=== PATIENT | female | born 1960 | race Two or more races ===

== ENCOUNTER 2025-03-17 10:24 | Outpatient (REF) | payer OTHER, SELFPAY ==
--- OUTSIDE RECORDS SUMMARY | 2025-03-18 10:26 | XMS_ITS ---
Author Name [facility] Organization Unknown Encounters Encounter Type Encounter Reason Primary Diagnosis Location Date Ambulatory [facility] 11/02/2024 Care Team Organization Name Specialty Phone Email Start Date End Da te [facility] ARY BRACLAY Primary Care 07/01/2022 4
--- OUTSIDE RECORDS SUMMARY | 2025-03-18 10:26 | XMS_ITS | Clinical Summary ---
Author Organization [facility] Address [address] [place] [id number] Phone Care Team Providers Care Barrel Filler Name Role Phone Nelson Sanchez MD Primary Care Provider + Allergies No known active allergies Medications OZEMPIC 0.25 mg or 0.5 mg (2 mg/3 mL) subcutaneous injection pen Inject 0.25 mg under the skin every 7 days. 4 Active atorvastatin (LIPITOR) 10 MG tablet Take 10 mg by mouth daily. Active therapeutic multivitamin tablet Take 1 tablet by mouth daily. Active famotidine (PEPCID) 20 MG tablet Take 20 mg by mouth 2 (two) times a day. Active nystatin cream Apply topically 2 (two) times a day. 30 g 2 Active Active Problems Problem Noted Date Diagnosed Date Abdominal pannus 03/28/2024 Intertrigo 03/28/2024 Family History Medical History Relation Comments Diabetes Mother Hypertension Mother Stroke Mother Relation Status Comments Father Mother Alive Social History Tobacco Use Types Packs/Day Years Used Date Smoking Tobacco: Never Tobacco Cessation:Counseling Given: Not Answered Alcohol Use Standard Drinks/Week Comments Not Currently 0 (1 standard drink = 0.6 oz pur e alcohol) Education Answer Date Recorded Are you interested in more education? Not on shmuel e 03/03/2024 Are you concerned about learning? Not on file 03/03/2024 No 03/03/2024 No 03/03/2024 Digital Access Answer Date Recorded No 03/03/2024 No 03/03/2024 Reliable internet access at home? Not on file 03/03/2024 Device with a working camera? Not on file Comments Unknown Sex and Gender Information Value Date Recorded Sex Assigned at Not on file Legal Sex Female 9:04 AM EDT Gender Identity Not on file Sexual Orientation Not on file Last Filed Vital Signs Vital Sign Reading Time Taken Comments Blood Pressure 110/56 05/24/2024 9:00 AM EDT Pulse 59 05/24/2024 9:00 AM EDT Temperature - - Respiratory Rate - - Oxygen Saturation - - Inhaled Oxygen Concentration - - Weight 65.1 kg (143 lb 9.6 oz) 05/24/2024 9:00 A M EDT Height 154.9 cm (5' 1 ) 05/24/2024 9:00 AM EDT Body Mass Index 27.13 05/24/2024 9:00 AM EDT Plan of Treatment Health Maintenance Due Date Last Done Comments DEPRESSION SCREENING 1972 HEPATITIS C SCREENING 1978 HIV ONE-TIME SCREENING (18-6 5 YEARS) 1978 SMOKING STATUS SCREENING (On ce After 26 Yrs) 1986 SCREENING FOR DIABETES 1995 MAMMOGRAM 2000 COLOGUARD 2005 COLONOSCOPY 2005 COLORECTAL CANCER SCREENING 2005 FIT TEST 2005 FOBT 2005 SIGMOIDOSCOPY 2005 VIRTUAL COLONOSCOPY 2005 PNEUMOCOCCAL VACCINES (50+ years) (1 of 1 - PCV) 2010 ZOSTER VACCINES (1 of 2) 2010 PAP SMEAR 11/26/2020 11/26/2017 COVID-19 VACCINE ( - 2023-2 5 season) 2024 LIPID PANEL 01/13/2029 01/14/2024 Adult Td,Tdap Booster 07/24/2030 07/24/2020 , 11/01/2009 RSV VACCINE (1 - 1-dose 75+ series) 2035 HEPATITIS A VACCINES Aged Out No long er eligible based on patient's age to complete this topic HIB VACCINES Aged Out No longer eligi ble based on patient's age to complete this topic MENINGOCOCCAL VACCINES (ACWY) Aged Out No longer eligible based on patient's age to complete this topic MENINGOCOCCAL VACCINES (B) Aged Out N o longer eligible based on patient's age to complete this topic Medical Devices Not on file Insurance MEDICARE REPLACEMENT MEDICARE REPLACEMENT MEDICARE REPLACEMENT MEDICARE REPLACEMENT MEDICARE REPLACEMENT MEDICARE REPLACEMENT Care Teams Barrel Filler Relationship Specialty Start Date End Date Nelson Sanchez MD [address] [place] [id number] PCP - General Internal Medicine 03/03/24 Additional Source Comments The information contained in this document represents components of the legal health record. It is not the complete legal health record.[facility]
--- OUTSIDE RECORDS SUMMARY | 2025-03-18 10:26 | XMS_ITS | Clinical Summary ---
Author Organization [facility] [address] [place] [address] Address [address] [place] [address] Phone Care Team Providers Care Forging Press Setter Up Name Role Phone Nelson Sanchez MD Primary Care Provider [phone] Allergies Active Allergy Reactions Criticality Noted Date Comments Blueberry Flavor Hives 07/05/2015 Fruit Shrimp Anaphylaxis High 05/09/2016 Medications betamethasone valerate (VALISONE) 0.1 % ointment Apply to affected area twice a day for 2 weeks. Avoid face and genital area. 4 Active naproxen (NAPROSYN) 500 mg tablet Take 1 Tablet by mouth 2 times daily as needed for Pain. 3 Active blood-glucose meter kit 1 Device by Does not apply route daily. 3 Active famotidine (PEPCID) 20 mg tablet Take 1 Tablet by mouth 2 times daily for 180 days. 3 Active acetaminophen (TYLENOL) 500 mg tablet Take 2 Tablets by mouth every 8 hours for 30 days. 2 Active wheat dextrin 3 gram/4 gram powder Take 4 g by mouth daily. 2 Active ketoconazole (NIZORAL) 2 % cream Apply 2 g topically daily for 14 days. 2 Active cholecalciferol (VITAMIN D-3) 1,250 mcg (50,000 unit) capsule Take 1 capsule by mouth once a week. 2 Active loratadine (CLARITIN) 10 mg tablet Take 1 tablet (10 mg total) by mouth 1 (one) time each day. 0 Active meclizine (ANTIVERT) 25 mg tablet TAKE 1 TABLET BY MOUTH 3 TIMES DAILY NEEDED FOR VERTIGO/DIZZINES S 90 tablet 1 4 Active Additional Information Patient not taking.Reported on 01/24/2025 Ozempic 0.25 mg or 0.5 mg (2 mg/3 mL) injection pen INJECT 0.5 MG UNDER THE SKIN EVERY 7 (SEVEN) DAYS. 3 mL 5 5 Active atorvastatin (LIPITOR) 10 mg tablet TAKE 1 TABLET BY MOUTH EVERY DAY 90 tablet 1 5 Active freestyle (FreeStyle Lancets) 28 gauge lancets Use to check BS daily 100 each 5 Active blood sugar diagnostic (FreeStyle Lite Strips) test strip Use to check bs daily 100 each 5 Active Active Problems Problem Noted Date Diagnosed Date Class 2 severe obesity due t o excess calories with serious comorbidity and body mass index (BMI) of 39.0 to 39.9 in adult ([facility] V24, [facility] V28) 06/09/2024 Other specified health status 06/09/2024 Overview (06/09/2024): Osteoarthrosis, unspecified whether generalized or localized, unspecified site Lumbar spondylosis 11/09/2023 Sacroiliitis ([facility] V24) 11/09/2023 Diabetic retinopathy ([facility] V24, [facility] V28) 05/13/2023 High cholesterol 10/11/2021 Secondary hypertension 04/11/2021 Pelvic pain 03/05/2021 Overview (06/09/2024): Last Assessment & Plan: Discussed potential causes of pelvic pain with the patient including infections, , ovarian cysts, endometriosis, interstitial cystitis, irritable bowel, and MSK etiologies. Pelvic US ordered Discussed relief measures. Postmenopausal bleeding 03/05/2021 Overview (06/09/2024): Last Assessment & Plan: I discussed the common causes of postmenopausal bleeding including trauma, atrophy, and endometrial polyps, as well as less common but more concerning causes including endometrial hyperplasia and endometrial carcinoma. Recommend pelvic ultrasound, which was ordered today. Discussed recommendation for endometrial sampling, as well. Patient declines EMB today. Will return for EMB at a later time. All questions answered. COVID-19 10/08/2020 Primary osteoarthritis of left knee 08/07/2020 Type 2 diabetes mellitus wit h cataract ([facility] V24, [facility] V28) 02/07/2019 Depression 10/27/2017 Pes planus of both feet 05/11/2017 Other specified health status 12/08/2016 Vitamin D deficiency 05/13/2012 Bilateral carpal tunnel syndrome 07/03/2010 Cervical neck pain with evidence of disc disease 04/08/2010 Herniated cervical disc 04/08/2010 Radiculopathy of arm 04/08/2010 Overview (06/09/2024): Right and Left Osteoarthritis 03/30/2007 Overview (06/09/2024): ankles and right knee pain IMO update Encounters Date Type Department Care Team Description 01/24/2025 1:15 PM EDT Office Visit Endocrinology [address] [phone] Angelica Braden PA Type 2 diabetes mellitus with cataract ([facility] V24, [facility] V28) (Primary Dx) 01/03/2025 3:30 PM EDT Office Visit Adult Medicine [address] [phone] Lavonne Yu PA Type 2 diabetes mellitus with cataract ([facility] V24, [facility] V28) (Primary Dx); High cholesterol; Varicose veins of both lower extremities, unspecified whether complicated; History of hypertension; Vertigo from Last 3 Months Immunizations Name Administration Dates Next Due H1N1 Inj Preservative Free 08/03/2009 Influenza Quadravalent, MDCK , 0.5ml, preservative free (Flucelvax) 6mo and older 06/03/2021,07/24/2020,06/16/2018 Influenza Quadrivalent, 0.5m l, preservative free (Fluarix; FluLaval; Fluzone) ages 6mo and older (Afluria) 3yo and older 06/06/2022 Influenza trivalent, 0.5mL, preservative free (Fluarix; FluLaval; Fluzone) ages 6mo and older (Afluria) 3 years and older 06/15/2015,06/07/2014,05/13/2010 Pneumococcal polysaccharide 23 valent (Pneumovax 23) 2yo and older 01/29/2017 Tdap Tetanus diptheria acell ular pertussis (Boostrix; Adacel) 7yo and older 07/24/2020,11/01/2009 Zoster recombinant (Shingrix ) 19yo and older 12/22/2021 Surgical History Surgery Date Site/Laterality Comments TUBAL LIGATION PROCEDURE: HISTORICAL TUBAL LIGATION OVARIAN CYST REMOVAL 08/24/2004 PROCEDURE: CA OVARIAN CYSTECTOMY UNI/BI; COMMENT: ? paraovarian cyst COLONOSCOPY 07/10/2010 PROCEDURE: HISTORICAL COLONOSCOPY; COMMENT: [facility]; [place]; negative but poor prep. COLONOSCOPY 03/14/2021 PROCEDURE: HISTORICAL COLONOSCOPY; COMMENT: negative Medical History Medical History Date Comments Morbid obesity ([facility] V24, [facility] V28) 03/30/2007 DX:Morbid obesity (HCC) Osteoarthrosis, unspecified whether generalized or localized, unspecified site 03/30/2007 DX:Osteoarthrosis, unspecifi ed whether generalized or localized, unspecified site; COMMENT: ankles and right knee pain Vitamin D deficiency 05/13/2012 DX:Vitamin D deficiency Diabetes mellitus type 2, co ntrolled, with complications ([facility] V24, [facility] V28) DX:Diabetes mellitus type 2, controlled, with complications (HCC) Glaucoma 12/08/2016 DX:Glaucoma Secondary hypertension 04/11/2021 DX:Second isai hypertension Type 2 diabetes mellitus wit h eye manifestations ([facility] V24, [facility] V28) 05/13/2023 DX:Type 2 diabetes mellitus with eye manifestations (HCC) Diabetic retinopathy ([facility] V24, [facility] V28) 05/13/2023 DX:Diabetic retinopathy (HCC ) Family History Medical History Relation Name Comments No Known Problems Aunt No Known Problems Brother No Known Problems Father No Known Problems Maternal Grandfather No Known Problems Maternal Grandmother Cataracts Mother Diabetes Mother Glaucoma Mother Breast cancer Mother's side COUSINS X 2 cousin Other: Other Other 1 father's hx is unknown No Known Problems Paternal Grandfather No Known Problems Paternal Grandmother Other: Other Sister thyroid No Known Problems Uncle 1 Colon cancer Uncle 2 Blindness Neg Hx Macular degeneration Neg Hx Ovarian cancer Neg Hx Strabismus Neg Hx Relation Name Status Comments Aunt Brother Alive Father Maternal Grandfather Maternal Grandmother Mother Alive DM Mother's side COUSINS X 2 Other Other 1 Other 2 Paternal Grandfather Paternal Grandmother Sister thyroid Alive Uncle 1 Alive colon cancer Uncle 2 Social History Tobacco Use Types Packs/Day Years Used Date Smoking Tobacco: Never Smokeless Tobacco: Never Tobacco Cessation:Counseling Given: Not Answered Alcohol Use Standard Drinks/Week Comments No 0 (1 standard drink = 0.6 oz pur e alcohol) Housing Instability Answer Date Recorde d Are you worried that in the next 2 months you may not have stable housing? No 11/15/2024 Food Access & Nutrition Answer Date Rec orded Do you have access to a vari ety of food including fruits and vegetables? Yes 11/15/2024 Access to Healthcare Answer Date Record ed Within the last 3 months, laura morrow many times did you visit the emergency department for your medical care? 0 11/15/2024 Health Literacy Answer Date Recorded How often do you need to hav e someone help you when you read instructions, pamphlets, or other written material from your doctor or pharmacy? Sometimes 11/15/2024 Caregiver: How often do you need to have someone help you when you read instructions, pamphlets, or other written material from your doctor or pharmacy? Not on file 11/15/2024 Financial Risk Answer Date Recorded How hard is it for you to pa y for the very basics like food, housing, medical care, and air conditioning / heating? Somewhat hard 11/15/2024 Transportation Answer Date Recorded Has the lack of transportati on kept you from meetings, work, or from getting things needed for daily living? No Has the lack of transportati on kept you from medical appointments or from getting medications? No 11/15/2024 Social Isolation Answer Date Recorded How often do you feel lonely or isolated from th ose around you? Rarely 11/15/2024 Food Risk Answer Date Recorded Within the past 12 months we worried whether our food would run out before we got money to buy more. Never true 11/15/2024 Within the past 12 months th e food we bought just didn't last and we didn't have money to get more. Never true 11/15/2024 Dependent Care Answer Date Recorded Do you need help finding or paying for care for your loved ones. For example, child support specialist or elderly care for an older adult? No 11/15/2024 Education Answer Date Recorded Do you think completing more education or training, like finishing a GED, going to college, or learning a trade, would be helpful for you? N/A 11/15/2024 Employment and Income Answer Date Recor ded During the last four weeks, have you been actively looking for work? No 11/15/2024 Living Situation Answer Date Recorded What is your living situation? 0 11/15/2024 Comments No Sex and Gender Information Value Date Recorded Sex Assigned at Female 07/26/2024 9:17 AM EST Legal Sex Female 7:33 PM EST Gender Identity Female 07/26/2024 9:17 AM EST Sexual Orientation Choose not to disclose 2023 9:17 AM EST Obstetrics History Para Term AB IAB SAB Ectopic Multiple Livin g Live Births 3 3 3 3 Date Outcome GA Total Labor Labor/2nd/3rd Weight Sex Type Anes PTL Marcela A1 A5 Name Clin Term Term Term Last Filed Vital Signs Vital Sign Reading Time Taken Comments Blood Pressure 118/69 01/24/2025 1:23 PM EDT Pulse 60 01/24/2025 1:23 PM EDT Temperature 36.6 C (97.9 F) 01/24/2025 1:23 PM EDT Respiratory Rate 14 09/21/2024 12:5 4 PM EST Oxygen Saturation 98% 01/03/2025 2:53 PM EDT Inhaled Oxygen Concentration - - Weight 67.9 kg (149 lb 12.8 oz) 01/24/2025 1:23 PM EDT Height 157.5 cm (5' 2 ) 01/24/2025 1:23 PM EDT Body Mass Index 27.4 01/24/2025 1:23 PM EDT Plan of Treatment Upcoming Encounters Date Type Department Care Team (Late st Contact Info) Description 04/11/2025 1:15 PM EDT Office Visit Bariatric Surgery - [address] [place] [address] [phone] Tiki Potter MD [address] [place] [address] 04/13/2025 9:30 AM EDT Consult Vascular Surgery - [place] [address] [place] [address] Florence Curry MD [address] [facility] [address] [place] [address] 06/08/2025 2:00 PM EDT Office Visit Adult Medicine South - [address] [phone] Nelson Sanchez MD [address] [place], [place] 07/26/2025 1:15 PM EST Office Visit Endocrinology - [address] [phone] Angelica Braden PA [address] [place] [address] 12/04/2025 1:00 PM EDT Appointment Radiology Department - [address] [phone] Health Maintenance Due Date Last Done Comments Medicare Annual Wellness Visit 08/02/2022 Diabetes: Annual Retina Eye Exam 11/22/2024 11/23/2023 Diabetes: Annual Urine Albumin-Creatinine Ratio (uACR) 01/18/2025 01/19/2024 Diabetes: Annual Foot Exam 04/05/2025 04/05/2024 Influenza Vaccine (#1) 2025 , 07/26/2023, 06/06/2022, Additional history exists Diabetes: Blood Sugar Control Test (HGBA1C) 07/20/2025 01/17/2025, 07/18/2024, 01/14/2024, Additional history exists Social Influencers of Health Screening 11/15/2025 11/15/2024 Diabetes: Annual GFR (Glomerular Filtration Rate) 01/17/2026 01/17/2025, 01/14/2024, 01/14/2024 Hypertension/CHF/CAD Annual BMP Blood Test 01/17/2026 01/17/2025, 01/14/2024, 01/14/2024 Colorectal Cancer Screening: Colonoscopy 03/14/2026 03/14/2021 Breast Cancer Screening 11/28/2026 11/29/19, 04/28/2024, 04/28/2024, Additional history exists Cervical Cancer Screening: HPV 02/20/2028 02/19/2023 Cholesterol Screening (Lipid Panel) 01/17/2030 01/17/2025, 01/14/2024, 01/14/2024 DTaP,Tdap,and Td Vaccines (3 - Td or Tdap) 07/24/2030 07/24/2020, 11/01/2009 HIV Screening Completed 02/08/2013 Hepatitis C Screening Completed 02/08/2013 Zoster Vaccines Completed 03/02/2022, 12/22/2021 RSV Immunization Adult Patients Completed 07/26/2023 COVID-19 Vaccine Completed 07/04/2024, 10/2022, 08/21/2021, Additional history exists Pneumococcal Vaccine: 50+ Years Completed 07/04/2024, 01/29/2017 Depression Screening Completed 11/15/2024, 11/05/19 24 HIB Vaccines Aged Out No longer eligi ble based on patient's age to complete this topic HPV Vaccines Aged Out No longer eligi ble based on patient's age to complete this topic Hepatitis A Vaccines Aged Out No long er eligible based on patient's age to complete this topic Hepatitis B Vaccines Aged Out No long er eligible based on patient's age to complete this topic IPV Vaccines Aged Out No longer eligi ble based on patient's age to complete this topic MMR Vaccines Aged Out No longer eligi ble based on patient's age to complete this topic Meningococcal ACWY Vaccine Aged Out N o longer eligible based on patient's age to complete this topic Meningococcal B Vaccine Aged Out No l onger eligible based on patient's age to complete this topic RSV Immunization Patients Under 20 months Aged Out No longer eligible based on patient's age to complete this topic Varicella Vaccines Aged Out No longer eligible based on patient's age to complete this topic Procedures Procedure Name Priority Date/Time Associated Diagnosis Comments BASIC METABOLIC PANEL Routine 01/17/2025 8:47 AM EDT Type 2 diabetes mellitus with cataract ([facility] V24, [facility] V28) HEMOGLOBIN A1C Routine 01/17/2025 8:47 AM EDT Type 2 diabetes mellitus with cataract ([facility] V24, [facility] V28) LIPID PANEL WITH REFLEX TO DIRECT LDL Routine 01/17/2025 8:47 AM EDT Type 2 diabetes mellitus with cataract ([facility] V24, [facility] V28) High cholesterol MG MAMMO DIGITAL DIAGNOSTIC W ALFONZO BILAT Routine 11/28/2024 1:15 PM EDT Other abnormal and inconclusive findings on diagnostic imaging of breast URINE ALBUMIN CREATININE RATIO Routine 01/19/2024 DIABETES EYE EXAM Routine 11/23/2023 DEPRESSION SCREENING Routine 11/05/2023 HPV Routine 02/19/2023 COLONOSCOPY Routine 03/14/2021 HEPATITIS C SCREENING Routine 02/08/2013 HIV SCREENING Routine 02/08/2013 from Last 3 Months or Most Recently Relevant to Health Maintenance Results * Lipid panel with reflex to direct LDL (01/17/2025 8:47 AM EDT) Cholesterol 176 0 - 200 mg/dL LAB CHEMISTRY METHOD 01/17/2025 4:42 PM EDT [facility] Triglycerides 53 0 - 150 mg/dL LAB CHEMISTRY METHOD 01/17/2025 4:42 PM EDT [facility] HDL 68 >=40 mg/dL LAB CHEMISTRY METHOD 01/17/2025 4:42 PM EDT [facility] LDL Calculated 97 0 - 100 mg/dL LAB CHEMISTRY METHOD 01/17/2025 4:42 PM EDT [facility] VLDL Cholesterol Evaristo 10.6 mg/dL LAB CHEMISTRY METHOD 01/17/2025 4:42 PM EDT [facility] Non HDL Chol. (LDL+VLDL) 108 <145 mg/dL LAB CHEMISTRY METHOD 01/17/2025 4:42 PM EDT [facility] Chol/HDL Ratio 2.6 0.0 - 4.4 LAB CHEMISTRY METHOD 01/17/2025 4:42 PM EDT [facility] Blood Venous blood specimen / Unknown Venipuncture / Unknown 01/17/2025 8:47 AM EDT 01/17/2025 8:47 AM EDT Lavonne RODRIGUEZ LAB BLOOD ORDERABLES Fi nal Result [facility] [address] [place] [address], * Hemoglobin A1c (01/17/2025 8:47 AM EDT) Hemoglobin A1C 4.9 <6.5 % LAB CHEMISTRY METHOD 01/17/2025 1:39 PM EDT [facility] Mean Bld Glu Estim. 94 mg/dL LAB CHEMISTRY METHOD 01/17/2025 1:39 PM EDT [facility] Blood Venous blood specimen / Unknown Venipuncture / Unknown 01/17/2025 8:47 AM EDT 01/17/2025 8:47 AM EDT Lavonne RODRIGUEZ LAB BLOOD ORDERABLES Fi nal Result [facility] [address] [place] [address], [place] [phone] * Basic metabolic panel (01/17/2025 8:47 AM EDT) Sodium 138 133 - 145 mmol/L LAB CHEMISTRY METHOD 01/17/2025 4:40 PM [facility] Potassium 4.5 3.5 - 5.5 mmol/L LAB CHEMISTRY METHOD 01/17/2025 4:40 PM [facility] Chloride 106 96 - 110 mmol/L LAB CHEMISTRY METHOD 01/17/2025 4:40 PM [facility] CO2 26 21 - 32 mmol/L LAB CHEMISTRY METHOD 01/17/2025 4:40 PM [facility] Anion Gap 6 3 - 11 LAB CHEMISTRY METHOD 01/17/2025 4:40 PM [facility] Glucose 80 70 - 100 mg/dL LAB CHEMISTRY METHOD 01/17/2025 4:40 PM [facility] BUN 22 5 - 25 mg/dL LAB CHEMISTRY METHOD 01/17/2025 4:40 PM [facility] Creatinine 0.67 0.50 - 1.10 mg/dL LAB CHEMISTRY METHOD 01/17/2025 4:40 PM [facility] eGFR 98 >=60 mL/min/1. 73m2 LAB CHEMISTRY METHOD 01/17/2025 4:40 PM [facility] Comment:Calculation based on the Chronic Kidney Disease Epidemiology Collaboration (CKD-EPI) equation refit without adjustment for race. BUN/Creatinine Ratio 32.8 LAB CHEMISTRY METHOD 01/17/2025 4:40 PM [facility] Calcium 9.6 8.5 - 10.5 mg/dL LAB CHEMISTRY METHOD 01/17/2025 4:40 PM [facility] Blood Venous blood specimen / Unknown Venipuncture / Unknown 01/17/2025 8:47 AM EDT 01/17/2025 8:47 AM EDT us Lavonne RODRIGUEZ LAB BLOOD ORDERABLES Fi nal Result [facility] [address] [place] [address], [place] [phone] * MG Mammo Digital Diagnostic w Alfonzo bilat (11/28/2024 1:15 PM EDT) Anatomical Region Laterality Modality Breast Bilateral Mammography 11/28/2024 1:31 PM EDT Impressions 11/28/2024 1:35 PM EDT No worrisome interval change in probably benign calcifications in the lower inner left breast. Recommend continued follow-up in one year with magnification views. No new suspicious finding in either breast. BREAST DENSITY: B - There are scattered areas of fibroglandular density. BI-RADS CATEGORY: 3 - PROBABLY BENIGN RECOMMENDATION: Diagnostic left mammogram recommended in 1 year. Screening right mammogram is recommended in 1 year. MAMMO LOCATION: [facility], [address] [place] [address], [id number], . -------- FINAL REPORT -------- Dictated By: Jaky Flowers Dictated Date: 11/28/2024 13:31 ET Assigned Physician: Jaky Flowers Reviewed and Electronically Signed By: Jaky Flowers Signed Date: 11/28/2024 13:35 ET Workstation ID: [id number] Transcribed By: Self Edit Transcribed Date: 11/28/2024 13:31 ET Narrative 11/28/2024 1:35 PM EDT EXAM: MG MAMMO DIGITAL DIAGNOSTIC W ALFONZO BILAT HISTORY: One year follow-up of probably benign calcifications in the lower inner left breast. COMPARISON: 04/28/2024 and as far back as 07/18/2017 TECHNIQUE: Bilateral mediolateral oblique and craniocaudal views were obtained digitally with 3-D mammogram (digital breast tomosynthesis). Computer-aided detection was utilized in evaluation of this exam (CAD). Magnification ML and CC views of left breast calcifications also performed. FINDINGS: No worrisome interval change in loosely grouped calcifications in the posterior lower inner left breast. No new suspicious mass, architectural distortion, or new suspicious calcifications in either breast. Nelson Sanchez MD IMG BI PROCEDURES Final Result * Urine Albumin Creatinine Ratio (01/19/2024) [facility] Urine Albumin Creatinine Ratio ABSTRACTED Result [facility] Provider HEALTH MAINTENANCE Final Result * Diabetes Eye Exam (11/23/2023) [facility] Diabetes: Annual Retina Eye Exam ABSTRACTED Result [facility] Provider HEALTH MAINTENANCE Final Result * Depression Screening (11/05/2023) [facility] Depression Screening ABSTRACTED Result [facility] Provider HEALTH MAINTENANCE Final Result * Cervical Cancer Screening: HPV (02/19/2023) [facility] Cervical Cancer Screening: HPV negative,a bstracted Result [facility] Provider HEALTH MAINTENANCE Final Result * Colonoscopy (03/14/2021) [facility] Colonoscopy no interpretation , abstracted Anatomical Region Laterality Modality Other Result [facility] Provider HEALTH MAINTENANCE Final Result * HIV Screening (02/08/2013) [facility] HIV Screening ABSTRACTED Result [facility] Provider HEALTH MAINTENANCE Final Result * Hepatitis C Screening (02/08/2013) [facility] Hepatitis C Screening ABSTRACTED Result [facility] Provider HEALTH MAINTENANCE Final Result from Last 3 Months or Most Recently Relevant to Health Maintenance Insurance [facility] MEDICARE Member Subscriber Plan / Payer (Ef fective 2022-Present) Name:SIL HERBERT Relation to Subscriber:Self Name:Sil Herbert Payer ID:[id number] Group ID:[id number] Type:Not on file Address: [address] [place] [id number] Advance Directives Documents on File Type Date Recorded Patient Primary Care Md Expl anation Health Care Decision (hx) 06/09/2022 HE ALTH CARE PROXY Health Care Decision (hx) 06/09/2022 HE ALTH CARE PROXY Health Care Decision (hx) 06/09/2022 HE ALTH CARE PROXY Health Care Decision (hx) 06/09/2022 HE ALTH CARE PROXY Health Care Decision (hx) 06/09/2022 HE ALTH CARE PROXY Health Care Decision (hx) 06/09/2022 HE ALTH CARE PROXY Health Care Decision (hx) 06/08/2022 AD BLOOM DIRECTIVE Health Care Decision (hx) 06/08/2022 AD BLOOM DIRECTIVE Health Care Decision (hx) 06/08/2022 AD BLOOM DIRECTIVE Health Care Decision (hx) 06/08/2022 AD BLOOM DIRECTIVE Health Care Decision (hx) 06/08/2022 AD BLOOM DIRECTIVE Health Care Decision (hx) 06/08/2022 AD BLOOM DIRECTIVE Health Care Decision (hx) 06/08/2022 AD BLOOM DIRECTIVE Care Teams Forging Press Setter Up Relationship Specialty Start Date End Date Nelson Sanchez MD [address] [place] [id number] PCP - General Internal Medicine 07/18/24
--- OUTSIDE RECORDS SUMMARY | 2025-03-18 10:26 | XMS_ITS | Data Portability ---
Author Organization [facility] Address [address] [place] [phone] Care Team Providers Care Fish Conservationist Name Role Phone HIM CCA OTHER Assessment No assessment recorded. Plan of Treatment Reminders Order Date Submit Date Provider Last Modified By Organization Details Last Modified Time Details Appointments None recorded. Lab BMP, serum or plasma [address], [address] 20:57:22 Referral None recorded. Procedures None recorded. Surgeries None recorded. Imaging electrocard iogram [address], [address] 4 20:58:58 Medication Orders sodium chloride 0.9 % intravenous solution 2023 024 gbaci Not available 20:56:34 Patient TargetsNo targets recorded. Patient Instructions Encounter Date Encounter Id Patient Instructions Last Modified By Organization Details Last Modified Time 02/24/2024 [id number] orthostatic vitals* BETINA Not available 02/26/2025 05:00:49 Reason for Referral None Reported. Results Created Date Observation Date Name Description Value Unit Range Abnormal Flag Note LastModifiedBy Organization Detail LastModifiedTime 02/24/2002/24/2024 BMP, serum or plasm a BUN 140 Not Available [facility] - [facility] [address], [address] 02/24/2024 20:56:20 02/24/2002/24/2024 BMP, serum or plasm a Ca 1.23 Not Available [facility] - [facility] [address], [address] 02/24/2024 20:56:20 02/24/20 24 02/24/2024 BMP, serum or plasm a CI- 103 Not Available [facility] - [facility] [address], [address] [place] [address] 02/24/2024 20:56:20 02/24/20 24 02/24/2024 BMP, serum or plasm a CRE 0.8 Not Available [facility] - [facility] [address], [address] [place] [address] 02/24/2024 20:56:20 02/24/20 24 02/24/2024 BMP, serum or plasm a GLU 90 Not Available [facility] - [facility] [address], [address] [place] [address] 02/24/2024 20:56:20 02/24/20 24 02/24/2024 BMP, serum or plasm a K+ 4.2 Not Available [facility] - [facility] [address], [address] [place] [address] 02/24/2024 20:56:20 02/24/20 24 02/24/2024 BMP, serum or plasm a Na+ 140 Not Available [facility] - [facility] [address], [address] [place] [address] 02/24/2024 20:56:20 02/24/20 24 02/24/2024 BMP, serum or plasm a tCO2 29 Not Available [facility] - Ins [address], [address] [place] [address] 02/24/2024 20:56:20 02/24/20 24 02/24/2024 elect alejandra diogr am No observ ation record ed. gbaci [address], [address] [place] [address] 02/24/2024 20:58:57 Result Notes None recorded. Medical Equipment None Reported. Medications Name Sig Start Date Stop Date Status Note LastModified by Organization Details LastModified Time betamethason e valerate 0.1 % topical ointment APPLY TO AFFECTED AREA TWICE A DAY FOR 2 WEEKS. AVOID FACE AND GENITAL AREA. active Not Available Not Available No t Available atorvastatin 10 mg tablet TAKE 1 TABLET BY MOUTH EVERY DAY active Not Available Not Available No t Available FreeStyle Lancets 28 gauge USE TWICE DAILY TO CHECK GLUCOSE active Not Available Not Available No t Available chlorthalido ne 25 mg tablet TAKE 1 TABLET BY MOUTH EVERY DAY active Not Available Not Available No t Available sodium chloride 0.9 % intravenous solution Inject 500 mL by intravenous route. 2023 active Not Available Not Available Not Avai lable naproxen 500 mg tablet TAKE 1 TABLET BY MOUTH TWICE A DAY NEEDED FOR PAIN active Not Available Not Available No t Available FreeStyle Lite Meter kit USE DIRECTED active Not Available Not Available No t Available FreeStyle Lite Strips USE TO CHECK BLOOD SUGAR TWICE A DAY active Not Available Not Available No t Available Ozempic 1 mg/dose (4 mg/3 mL) subcutaneous pen injector INJECT 1 MG INTO THE SKIN ONCE A WEEK FOR 4 DOSES. active Not Available Not Available No t Available Ozempic 0.25 mg or 0.5 mg (2 mg/3 mL) subcutaneous pen injector INJECT 0.5 MG INTO THE SKIN EVERY 7 DAYS. active Not Available Not Available No t Available Vitals Date Recorded Respiratory rate Heart rate Body temperature Body height Oxygen saturation Oxygen saturation in Arterial blood by Pulse oximetry Heart rate Body weight Systolic And Diastolic Systolic And Diastolic Provider Name and Address Organization Details Last Updated DateTime 4 16 /min 74 /min 97.4 [degF] 157.48 cm 100 % 100 % 66 /min 80588.4 32 g 116/76 mm[Hg] 111/66 mm[Hg] Not Available [facility] - production 4 20:52:03 Social History None recorded. Functional Status None recorded. Mental Status None recorded. Family History Nothing Reported. Medical History No medical history recorded. Gynecological HistoryNo gynecological history recorded. Obstetrics History GPAL:G 0 P 0 0 0 0 Past Encounters Encounter ID Performer Location Encounter Start Date Encounter Closed Date Diagnosis/Indication Diagnosis SNOMED-CT Code Diagnosis ICD10 Code Diagnosis Note [id number] FRANNIE CONDE MD Main - [address] [address] 02/24/2024 20:51:45 02/24/2024 21:28:46 Mild dehydration 4099850798 108 E86.0 Evaluation in the field was performed by my rail gang supervisor colleague. As noted above, I provided real-time direction and supervisio n for this visit. The evaluation revealed a 63-year-ol d female s/p gastric sleeve ~1.5 years ago with chronic dizziness. Her daughter, Maria G, is concerned because the patient s BP is lower than usual tonight, ranging from 96/54 to 97/59 (BP is usually in the 120s systolic). The patient is not on any antihypert ensive medication s currently. She reports eating small portions during the day and drinks two Ensure shakes a day. She denies recent decreased PO intake, nausea, vomiting, or diarrhea. She also denies chest pain and shortness of breath . VS: BP 111/66, HR 74 bpmOrthost atic VS: NegativeBM P: BUN 30/0.8, electrolyt es WNL Impression :Mild dehydratio n Plan:-NS 500 ml IV x1-Encoura ged to increase amount of fluids during the day-May slightly increase salt intake to keep BP steady now that she has lost significan t weight-Red flags discussed with patient and daughter Primary care, consider__ _ Dispositio n: We discussed the diagnostic uncertaint y of home visits and the risk associated with this. In this case, the patient and I felt this to be an acceptable and reasonable amount of risk given the benefit of avoiding an ED visit. We discussed the need to seek care urgently/e mergently in the setting of any new or worsening serious symptoms, particular ly weakness, dizziness, headache, CP, SOB, nausea, vomiting, or any other concerns. Health Concerns Section Related Observation LastModified by Organization Detai ls LastModified Time None Recorded Concern Status LastModified by Organization Details LastModified Time None Recorded Advance Directives Directive None Recorded Payers Insurance Date Sequence Insurance Name Policy Number Policy Gan Covered Member ID Gan Member ID Guarantor Name 02/24/2024 1 [facility] - DOS ON OR AFTER 2022 - DUAL ELIGIBLE - [employer] AND ONE [employer] (MEDICARE REPLACEMENT/AD VANTAGE - HMO) Kitty Herbert [id number] Kitty Herbert Notes Date Note Type Note Provider Name and Address Organization Details Recorded Time 02/24/2024 text/html ROS as noted in the HPI HPI: Member with c/o dizziness that has been ongoing. Daughter Maria G concerned because member's BP is lower than usual tonight. Member BP 96/54 and 97/59. Daughter states BP is usually 120's systolic. .................. .................. .................. .................. .................. .................. .................. ............... CRC Nurse Triage Notes (Nelly Batista): Comments: CRC RN did not require any additional information to process this visit. FRANNIE CONDE MD [address] [place] [address],[facility] [facility], [place], [phone], [facility] 02/24/2024 21:12:31 OBGyn Episode No OBEpisode recorded.
== END 2025-03-17 10:25 | disposition home or self-care (01) ==
LOC: HO.HOSX 10:24
PROVIDERS: Visit Provider Physician Assistant
DX: Z13.89 Encounter for screening for other disorder (principal)

== ENCOUNTER 2025-03-20 09:00 | Outpatient (REF) | payer OTHER, SELFPAY ==
--- NOTE | ~2025-03-20 | XR_ITS ---
XR KNEE URIEL 3V HISTORY: Bilateral knee pain. COMPARISON: No prior Available. TECHNIQUE: AP, lateral, and sunrise views of each knee were obtained. FINDINGS: RIGHT KNEE: No fracture, dislocation, or suspicious bone lesion. Normal alignment. Moderate to severe osteoarthrosis and joint space narrowing in all 3 compartments with subchondral sclerosis, cystic changes, and prominent marginal osteophytic spurs. No abnormal patellar tilt. There are bulky patellofemoral osteophytes. There is a tiny joint effusion. Soft tissues appear normal. LEFT KNEE: No fracture, dislocation, or suspicious bone lesion. Severe osteoarthrosis and joint space narrowing with [id number]-gt-gkbj appearance in the medial compartment, and nzuq-xg-iwqp appearance in the lateral facet patellofemoral compartment. Mild compensatory widening of the lateral compartment with mild varus angulation of the joint. Subchondral sclerosis, cystic changes, and prominent marginal osteophytic spurs in all 3 compartments most notable in the patellofemoral compartment. No evidence of joint effusion. Soft tissues appear normal. XR/XR Knee Uriel 3V IMPRESSION: LEFT KNEE: 1. No acute bony abnormality. 2. Tricompartmental osteoarthrosis, severe in the patellofemoral and medial compartment. RIGHT KNEE: 1. No acute bony abnormality. 2. Hmeohkrv-vp-qyprtu tricompartmental osteoarthrosis. Electronically signed by: Salinas Daniels MD 03/20/2025 02:04 PM EDT
--- OUTSIDE RECORDS SUMMARY | 2025-03-21 09:20 | XMS_ITS | Clinical Summary ---
Author Organization [facility] Address [address] [facility] [address] [place] [phone] Phone Care Team Providers Care Primary Substance Abuse Counselor Name Role Phone Nelson Sanchez MD Primary [...] REPLACEMENT MEDICARE REPLACEMENT MEDICARE REPLACEMENT Care Teams Primary Substance Abuse Counselor Relationship Specialty Start Date End Date Nelson Sanchez MD [address] [place] [phone] PCP - General Internal Medicine 03/03/24 Additional Source Comments The information contained in this document represents components of the legal health record. It is not the complete legal health record.[facility]
--- OUTSIDE RECORDS SUMMARY | 2025-03-21 09:20 | XMS_ITS | Clinical Summary ---
Author Organization [facility] [address] [place] [address] Address [address] [place] [address] Phone Care Team Providers Care Marine Oil [employer] Superintendent Name Role Phone Nelson Sanchez MD Primary Care Provider [phone] Allergies Active Allergy Reactions Criticality Noted Date [...] (BMI) of 39.0 to 39.9 in adult ([facility] V24, [facility] V28) 06/09/2024 Other specified health status 06/09/2024 Overview (06/09/2024): Osteoarthrosis, unspecified whether generalized or localized, unspecified site Lumbar spondylosis 11/09/2023 Sacroiliitis ([facility] [place]24) 11/09/2023 Diabetic retinopathy ([facility] [place]24, [facility] V28) 05/13/2023 High cholesterol 10/11/2021 Secondary hypertension [...] Type 2 diabetes mellitus wit h cataract ([facility] V24, [facility] V28) 02/07/2019 Depression 10/27/2017 Pes planus of [...] 01/24/2025 1:15 PM EDT Office Visit Endocrinology [address] [phone] Angelica Braden PA Type 2 diabetes mellitus with cataract ([facility] V24, [facility] V28) (Primary Dx) 01/03/2025 3:30 PM EDT Office Visit Adult Medicine [address] [phone] Lavonne Yu PA Type 2 diabetes mellitus with cataract ([facility] V24, [facility] V28) (Primary Dx); High cholesterol; Varicose veins [...] TUBAL LIGATION OVARIAN CYST REMOVAL 08/24/2004 PROCEDURE: DC OVARIAN CYSTECTOMY UNI/BI; COMMENT: ? paraovarian cyst COLONOSCOPY 07/10/2010 PROCEDURE: HISTORICAL COLONOSCOPY; COMMENT: [facility]; [place]; negative but poor prep. COLONOSCOPY 03/14/2021 PROCEDURE: HISTORICAL COLONOSCOPY; COMMENT: negative Medical History Medical History Date Comments Morbid obesity ([facility] V24, [facility] V28) 03/30/2007 DX:Morbid obesity (HCC) Osteoarthrosis, unspecified whether generalized or localized, unspecified site 03/30/2007 DX:Osteoarthrosis, unspecifi ed whether generalized or localized, unspecified site; COMMENT: ankles and right knee pain Vitamin D deficiency 05/13/2012 DX:Vitamin D deficiency Diabetes mellitus type 2, co ntrolled, with complications ([facility] V24, [facility] V28) DX:Diabetes mellitus type 2, controlled, with complications (HCC) Glaucoma 12/08/2016 DX:Glaucoma Secondary hypertension 04/11/2021 DX:Second isai hypertension Type 2 diabetes mellitus wit h eye manifestations ([facility] V24, [facility] V28) 05/13/2023 DX:Type 2 diabetes mellitus with eye manifestations (HCC) Diabetic retinopathy ([facility] V24, [facility] V28) 05/13/2023 DX:Diabetic retinopathy (HCC ) Family [...] care for your loved ones. For example, children's attendant or elderly care for an older [...] PM EDT Office Visit Bariatric Surgery - [address] [place] [phone] Tiki Potter MD [address] [place] [address] 04/13/2025 9:30 AM EDT Consult Vascular Surgery - [place] [address] [place] [address] Florence Curry MD [address] [facility] [address] [place] [address] 06/08/2025 2:00 PM EDT Office Visit Adult Medicine South - [address] [phone] Nelson Sanchez MD [address] [place], [place] 07/26/2025 1:15 PM EST Office Visit Endocrinology - [address] [phone] Angelica Braden PA [address] [place] [address] 12/04/2025 1:00 PM EDT Appointment Radiology Department - [address] [phone] Health Maintenance Due Date Last Done Comments [...] EDT Type 2 diabetes mellitus with cataract ([facility] V24, [facility] V28) HEMOGLOBIN A1C Routine 01/17/2025 8:47 AM EDT Type 2 diabetes mellitus with cataract ([facility] V24, [facility] V28) LIPID PANEL WITH REFLEX TO DIRECT LDL Routine 01/17/2025 8:47 AM EDT Type 2 diabetes mellitus with cataract ([facility] V24, [facility] V28) High cholesterol MG MAMMO DIGITAL DIAGNOSTIC [...] LAB CHEMISTRY METHOD 01/17/2025 4:42 PM EDT [facility] Triglycerides 53 0 - 150 mg/dL LAB CHEMISTRY METHOD 01/17/2025 4:42 PM EDT [facility] HDL 68 >=40 mg/dL LAB CHEMISTRY METHOD 01/17/2025 4:42 PM EDT [facility] LDL Calculated 97 0 - 100 mg/dL LAB CHEMISTRY METHOD 01/17/2025 4:42 PM EDT [facility] VLDL Cholesterol Evaristo 10.6 mg/dL LAB CHEMISTRY METHOD 01/17/2025 4:42 PM EDT [facility] Non HDL Chol. (LDL+VLDL) 108 <145 mg/dL LAB CHEMISTRY METHOD 01/17/2025 4:42 PM EDT [facility] Chol/HDL Ratio 2.6 0.0 - 4.4 LAB CHEMISTRY METHOD 01/17/2025 4:42 PM EDT [facility] Blood Venous blood specimen / Unknown Venipuncture / Unknown 01/17/2025 8:47 AM EDT 01/17/2025 8:47 AM EDT Lavonne RODRIGUEZ LAB BLOOD ORDERABLES Fi nal Result [facility] [address] [place] [address], * Hemoglobin A1c (01/17/2025 8:47 AM EDT) Hemoglobin A1C 4.9 <6.5 % LAB CHEMISTRY METHOD 01/17/2025 1:39 PM EDT [facility] Mean Bld Glu Estim. 94 mg/dL LAB CHEMISTRY METHOD 01/17/2025 1:39 PM EDT [facility] Blood Venous blood specimen / Unknown Venipuncture / Unknown 01/17/2025 8:47 AM EDT 01/17/2025 8:47 AM EDT Lavonne RODRIGUEZ LAB BLOOD ORDERABLES Fi nal Result [facility] [address] [place] [address], [place] [phone] * Basic metabolic panel (01/17/2025 8:47 AM EDT) Sodium 138 133 - 145 mmol/L LAB CHEMISTRY METHOD 01/17/2025 4:40 PM [facility] Potassium 4.5 3.5 - 5.5 mmol/L LAB CHEMISTRY METHOD 01/17/2025 4:40 PM [facility] Chloride 106 96 - 110 mmol/L LAB CHEMISTRY METHOD 01/17/2025 4:40 PM [facility] CO2 26 21 - 32 mmol/L LAB CHEMISTRY METHOD 01/17/2025 4:40 PM [facility] Anion Gap 6 3 - 11 LAB CHEMISTRY METHOD 01/17/2025 4:40 PM [facility] Glucose 80 70 - 100 mg/dL LAB CHEMISTRY METHOD 01/17/2025 4:40 PM [facility] BUN 22 5 - 25 mg/dL LAB CHEMISTRY METHOD 01/17/2025 4:40 PM [facility] Creatinine 0.67 0.50 - 1.10 mg/dL LAB CHEMISTRY METHOD 01/17/2025 4:40 PM [facility] eGFR 98 >=60 mL/min/1. 73m2 LAB CHEMISTRY METHOD 01/17/2025 4:40 PM [facility] Comment:Calculation based on the Chronic Kidney Disease Epidemiology Collaboration (CKD-EPI) equation refit without adjustment for race. BUN/Creatinine Ratio 32.8 LAB CHEMISTRY METHOD 01/17/2025 4:40 PM [facility] Calcium 9.6 8.5 - 10.5 mg/dL LAB CHEMISTRY METHOD 01/17/2025 4:40 PM [facility] Blood Venous blood specimen / Unknown Venipuncture / Unknown 01/17/2025 8:47 AM EDT 01/17/2025 8:47 AM EDT us Lavonne RODRIGUEZ LAB BLOOD ORDERABLES Fi nal Result [facility] [address] [place] [address], [place] [phone] * MG Mammo Digital Diagnostic w Alfonzo [...] is recommended in 1 year. MAMMO LOCATION: [facility], [address] [place] [address], [address], . -------- FINAL REPORT -------- Dictated By: Jaky Flowers Dictated Date: 11/28/2024 13:31 ET Assigned Physician: Jaky Flowers Reviewed and Electronically Signed By: Jaky Flowers Signed Date: 11/28/2024 13:35 ET Workstation ID: [id number] Transcribed By: Self Edit Transcribed Date: 11/28/2024 [...] Result * Urine Albumin Creatinine Ratio (01/19/2024) [facility] Urine Albumin Creatinine Ratio ABSTRACTED Result [facility] Provider HEALTH MAINTENANCE Final Result * Diabetes Eye Exam (11/23/2023) [facility] Diabetes: Annual Retina Eye Exam ABSTRACTED Result [facility] Provider HEALTH MAINTENANCE Final Result * Depression Screening (11/05/2023) [facility] Depression Screening ABSTRACTED Result [facility] Provider HEALTH MAINTENANCE Final Result * Cervical Cancer Screening: HPV (02/19/2023) [facility] Cervical Cancer Screening: HPV negative,a bstracted Result [facility] Provider HEALTH MAINTENANCE Final Result * Colonoscopy (03/14/2021) [facility] Colonoscopy no interpretation , abstracted Anatomical Region Laterality Modality Other Result [facility] Provider HEALTH MAINTENANCE Final Result * HIV Screening (02/08/2013) [facility] HIV Screening ABSTRACTED Result [facility] Provider HEALTH MAINTENANCE Final Result * Hepatitis C Screening (02/08/2013) [facility] Hepatitis C Screening ABSTRACTED Result [facility] Provider HEALTH MAINTENANCE Final Result from Last 3 Months or Most Recently Relevant to Health Maintenance Insurance [facility] MEDICARE Member Subscriber Plan / Payer (Ef fective 2022-Present) Name:SIL HERBERT Relation to Subscriber:Self Name:Sil Herbert Payer ID:[id number] Group ID:[id number] Type:Not on file Address: [address] [place] [id number] Advance Directives Documents on File Type Date Recorded 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
== END 2025-03-20 09:01 | disposition home or self-care (01) ==
LOC: HO.HOSX 09:00
PROVIDERS: Visit Provider Orthopaedic Surgery
DX: M17.0 Bilateral primary osteoarthritis of knee (principal); Z79.899 Other long term (current) drug therapy
CPT/HCPCS: 73562; 99202

== ENCOUNTER 2025-03-20 13:02 | Outpatient (AMB) | payer OTHER, SELFPAY ==
--- NOTE | 2025-03-20 13:11 | MHC.OFFVIS ---
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 She describes her pains as sharp and severe in nature. Her pains have gotten worse over the last few years in spite of continued non operative treatments. She has failed the last 3 months of conservative treatment which has included physical therapy exercises, a home exercise program, Tylenol, anti-inflammatory medicines and topical creams. She has had multiple cortisone injections in the past. The most recent cortisone injection gave her no relief. At this point the patient's bilateral knee pains are interfering with her activities of daily living and her ability to sleep well through the night. The patient wishes to hold off on total knee replacement surgery if at all possible. Power Plant Operators Supervisor Required: Yes Power Plant Operators Supervisor Services: Power Plant Operators Supervisor Offered & Declined Power Plant Operators Supervisor Name: Daughter- Maria G. Allergies shrimp Allergy (Intermediate, Uncoded 03/20/25 13:17) Rash Blueberry fruits and blueberry Allergy (Unknown, Uncoded 06/03/18 00:00) Uticaria/hives Medication List - Last Reviewed 03/20/25 by Maria T Brown acetaminophen 500 mg PO Q6H PRN atorvastatin 10 mg PO DAILY betamethasone valerate 0.1% 1 appl topical BID PRN blood sugar diagnostic (FreeStyle Lite Strips) As directed blood-glucose meter (Blood Glucose Monitoring kit) As directed famotidine 20 mg PO BID lancets (FreeStyle Lancets) As directed meclizine 25 mg PO TID PRN naproxen 500 mg PO BID semaglutide (Ozempic) 1 mg subcut QWEEK Physical Exam Vital Signs: BMI result Body Mass Index 26.9 Const Other: Well-nourished well-developed very friendly female awake alert and oriented x3 in no acute distress Extrem Other: Bilateral lower extremity examination shows good capillary refill, no skin lesions noted, normal sensation light touch Bilateral knee examination shows minimal effusions, palpable crepitus with range of motion, pain with range of motion, no instability Results Reviewed Results Reviewed: X-rays of the patient's bilateral knee show joint space narrowing, subchondral sclerosis, osteophyte formation, no acute bony abnormalities Assessment & Plan Assessment & Plan (1) Osteoarthritis of left knee: Code(s): M17.12 - Unilateral primary osteoarthritis, left knee Category: Medical (2) Osteoarthritis of right knee: Code(s): M17.11 - Unilateral primary osteoarthritis, right knee Category: Medical Plan Ms. Herbert presents with bilateral knee pains due to osteoarthritis. I had a lengthy discussion with the patient regarding the treatment options. She wishes to hold off on surgery for as long as possible. I agree with this plan. I will see if her company will cover a viscosupplementation injection such as Durolane for both of her knees. I will see her back once the injections are available. Feel free to call me at any time should questions regarding her orthopedic management arise. Thank you very much for asking me to see this very friendly patient. I spent 22 minutes in reviewing the patient's records and imaging studies, seeing the patient and documenting in the medical record. Orders: Orders XR Knee Uriel 3V Today M25.561 - Pain in right knee, M25.562 - Pain in left knee Coding Level of Care Code New Pt Level 3 (60900) Complex EM visit Add On G2211 Diagnoses Osteoarthritis of left knee M17.12 Osteoarthritis of right knee M17.11
[2025-03-20 13:13] VITALS: BMI 26.9
--- OUTSIDE RECORDS SUMMARY | 2025-03-20 13:41 | XMS_ITS | Clinical Summary ---
Author Organization [facility] Address [address] [facility] [address] [place] [phone] Phone Care Team Providers Care Senior Business Architect Name Role Phone Nelson Sanchez MD Primary [...] REPLACEMENT MEDICARE REPLACEMENT MEDICARE REPLACEMENT Care Teams Senior Business Architect Relationship Specialty Start Date End Date Nelson Sanchez MD [address] [place] [id number] PCP - General Internal Medicine 03/03/24 Additional Source Comments The information contained in this document represents components of the legal health record. It is not the complete legal health record.[facility]
--- OUTSIDE RECORDS SUMMARY | 2025-03-20 13:42 | XMS_ITS | Clinical Summary ---
Author Organization [facility] [address] [place] [address] Address [address] [place] [address] Phone Care Team Providers Care Ticker Maintainer Name Role Phone Nelson Sanchez MD Primary Care Provider [phone] Allergies Active Allergy Reactions Criticality Noted Date [...] (BMI) of 39.0 to 39.9 in adult ([facility] V24, [facility] V28) 06/09/2024 Other specified health status 06/09/2024 Overview (06/09/2024): Osteoarthrosis, unspecified whether generalized or localized, unspecified site Lumbar spondylosis 11/09/2023 Sacroiliitis ([facility] V24) 11/09/2023 Diabetic retinopathy ([facility] V24, [facility] V28) 05/13/2023 High cholesterol 10/11/2021 Secondary hypertension [...] Type 2 diabetes mellitus wit h cataract ([facility] V24, [facility] V28) 02/07/2019 Depression 10/27/2017 Pes planus of [...] 01/24/2025 1:15 PM EDT Office Visit Endocrinology [address] [phone] Angelica Braden PA Type 2 diabetes mellitus with cataract ([facility] V24, [facility] V28) (Primary Dx) 01/03/2025 3:30 PM EDT Office Visit Adult Medicine [address] [phone] Lavonne Yu PA Type 2 diabetes mellitus with cataract ([facility] V24, [facility] V28) (Primary Dx); High cholesterol; Varicose veins [...] TUBAL LIGATION OVARIAN CYST REMOVAL 08/24/2004 PROCEDURE: WI OVARIAN CYSTECTOMY UNI/BI; COMMENT: ? paraovarian cyst COLONOSCOPY 07/10/2010 PROCEDURE: HISTORICAL COLONOSCOPY; COMMENT: [facility]; [place]; negative but poor prep. COLONOSCOPY 03/14/2021 PROCEDURE: HISTORICAL COLONOSCOPY; COMMENT: negative Medical History Medical History Date Comments Morbid obesity ([facility] V24, [facility] V28) 03/30/2007 DX:Morbid obesity (HCC) Osteoarthrosis, unspecified whether generalized or localized, unspecified site 03/30/2007 DX:Osteoarthrosis, unspecifi ed whether generalized or localized, unspecified site; COMMENT: ankles and right knee pain Vitamin D deficiency 05/13/2012 DX:Vitamin D deficiency Diabetes mellitus type 2, co ntrolled, with complications ([facility] V24, [facility] V28) DX:Diabetes mellitus type 2, controlled, with complications (HCC) Glaucoma 12/08/2016 DX:Glaucoma Secondary hypertension 04/11/2021 DX:Second isai hypertension Type 2 diabetes mellitus wit h eye manifestations ([facility] V24, [facility] V28) 05/13/2023 DX:Type 2 diabetes mellitus with eye manifestations (HCC) Diabetic retinopathy ([facility] V24, [facility] V28) 05/13/2023 DX:Diabetic retinopathy (HCC ) Family [...] care for your loved ones. For example, childrens club attendant or elderly care for an older adult? [...] PM EDT Office Visit Bariatric Surgery - [address] [place] [phone] Tiki Potter MD [address] [place] [address] 04/13/2025 9:30 AM EDT Consult Vascular Surgery - [facility] [address] [place] [address] Florence Curry MD [address] [facility] [address] [place] [address] 06/08/2025 2:00 PM EDT Office Visit Adult Medicine South - [address] [phone] Nelson Sanchez MD [address] [place], [place] 07/26/2025 1:15 PM EST Office Visit Endocrinology - [address] [phone] Angelica Braden PA [address] [place] [address] 12/04/2025 1:00 PM EDT Appointment Radiology Department - [address] [phone] Health Maintenance Due Date Last Done Comments [...] EDT Type 2 diabetes mellitus with cataract ([facility] V24, [facility] V28) HEMOGLOBIN A1C Routine 01/17/2025 8:47 AM EDT Type 2 diabetes mellitus with cataract ([facility] V24, [facility] V28) LIPID PANEL WITH REFLEX TO DIRECT LDL Routine 01/17/2025 8:47 AM EDT Type 2 diabetes mellitus with cataract ([facility] V24, [facility] V28) High cholesterol MG MAMMO DIGITAL DIAGNOSTIC [...] LAB CHEMISTRY METHOD 01/17/2025 4:42 PM EDT [facility] Triglycerides 53 0 - 150 mg/dL LAB CHEMISTRY METHOD 01/17/2025 4:42 PM EDT [facility] HDL 68 >=40 mg/dL LAB CHEMISTRY METHOD 01/17/2025 4:42 PM EDT [facility] LDL Calculated 97 0 - 100 mg/dL LAB CHEMISTRY METHOD 01/17/2025 4:42 PM EDT [facility] VLDL Cholesterol Evaristo 10.6 mg/dL LAB CHEMISTRY METHOD 01/17/2025 4:42 PM EDT [facility] Non HDL Chol. (LDL+VLDL) 108 <145 mg/dL LAB CHEMISTRY METHOD 01/17/2025 4:42 PM EDT [facility] Chol/HDL Ratio 2.6 0.0 - 4.4 LAB CHEMISTRY METHOD 01/17/2025 4:42 PM EDT [facility] Blood Venous blood specimen / Unknown Venipuncture / Unknown 01/17/2025 8:47 AM EDT 01/17/2025 8:47 AM EDT Lavonne RODRIGUEZ LAB BLOOD ORDERABLES Fi nal Result [facility] [address] [place] [address], * Hemoglobin A1c (01/17/2025 8:47 AM EDT) Hemoglobin A1C 4.9 <6.5 % LAB CHEMISTRY METHOD 01/17/2025 1:39 PM EDT [facility] Mean Bld Glu Estim. 94 mg/dL LAB CHEMISTRY METHOD 01/17/2025 1:39 PM EDT [facility] Blood Venous blood specimen / Unknown Venipuncture / Unknown 01/17/2025 8:47 AM EDT 01/17/2025 8:47 AM EDT Lavonne RODRIGUEZ LAB BLOOD ORDERABLES Fi nal Result [facility] [address] [place] [address], [place] [phone] * Basic metabolic panel (01/17/2025 8:47 AM EDT) Sodium 138 133 - 145 mmol/L LAB CHEMISTRY METHOD 01/17/2025 4:40 PM [facility] Potassium 4.5 3.5 - 5.5 mmol/L LAB CHEMISTRY METHOD 01/17/2025 4:40 PM [facility] Chloride 106 96 - 110 mmol/L LAB CHEMISTRY METHOD 01/17/2025 4:40 PM [facility] CO2 26 21 - 32 mmol/L LAB CHEMISTRY METHOD 01/17/2025 4:40 PM [facility] Anion Gap 6 3 - 11 LAB CHEMISTRY METHOD 01/17/2025 4:40 PM [facility] Glucose 80 70 - 100 mg/dL LAB CHEMISTRY METHOD 01/17/2025 4:40 PM [facility] BUN 22 5 - 25 mg/dL LAB CHEMISTRY METHOD 01/17/2025 4:40 PM [facility] Creatinine 0.67 0.50 - 1.10 mg/dL LAB CHEMISTRY METHOD 01/17/2025 4:40 PM [facility] eGFR 98 >=60 mL/min/1. 73m2 LAB CHEMISTRY METHOD 01/17/2025 4:40 PM [facility] Comment:Calculation based on the Chronic Kidney Disease Epidemiology Collaboration (CKD-EPI) equation refit without adjustment for race. BUN/Creatinine Ratio 32.8 LAB CHEMISTRY METHOD 01/17/2025 4:40 PM [facility] Calcium 9.6 8.5 - 10.5 mg/dL LAB CHEMISTRY METHOD 01/17/2025 4:40 PM [facility] Blood Venous blood specimen / Unknown Venipuncture / Unknown 01/17/2025 8:47 AM EDT 01/17/2025 8:47 AM EDT us Lavonne RODRIGUEZ LAB BLOOD ORDERABLES Fi nal Result [facility] [address] [place] [address], [place] [phone] * MG Mammo Digital Diagnostic w Alfonzo [...] is recommended in 1 year. MAMMO LOCATION: [facility], [address] [place] [address], [id number], . -------- FINAL REPORT -------- Dictated By: Jaky Flowers Dictated Date: 11/28/2024 13:31 ET Assigned Physician: Jaky Flowers Reviewed and Electronically Signed By: Jaky Flowers Signed Date: 11/28/2024 13:35 ET Workstation ID: [id number] Transcribed By: Self Edit Transcribed Date: 11/28/2024 [...] Result * Urine Albumin Creatinine Ratio (01/19/2024) [facility] Urine Albumin Creatinine Ratio ABSTRACTED Result [facility] Provider HEALTH MAINTENANCE Final Result * Diabetes Eye Exam (11/23/2023) [facility] Diabetes: Annual Retina Eye Exam ABSTRACTED Result [facility] Provider HEALTH MAINTENANCE Final Result * Depression Screening (11/05/2023) [facility] Depression Screening ABSTRACTED Result [facility] Provider HEALTH MAINTENANCE Final Result * Cervical Cancer Screening: HPV (02/19/2023) [facility] Cervical Cancer Screening: HPV negative,a bstracted Result [facility] Provider HEALTH MAINTENANCE Final Result * Colonoscopy (03/14/2021) [facility] Colonoscopy no interpretation , abstracted Anatomical Region Laterality Modality Other Result [facility] Provider HEALTH MAINTENANCE Final Result * HIV Screening (02/08/2013) [facility] HIV Screening ABSTRACTED Result [facility] Provider HEALTH MAINTENANCE Final Result * Hepatitis C Screening (02/08/2013) [facility] Hepatitis C Screening ABSTRACTED Result [facility] Provider HEALTH MAINTENANCE Final Result from Last 3 Months or Most Recently Relevant to Health Maintenance Insurance [facility] MEDICARE Member Subscriber Plan / Payer (Ef fective 2022-Present) Name:SIL HERBERT Relation to Subscriber:Self Name:Sil Herbert Payer ID:[id number] Group ID:[id number] Type:Not on file Address: [address] [place] [id number] Advance Directives Documents on File Type Date Recorded Patient Quality Project Manager Expl anation Health Care Decision (hx) 06/09/2022 [...] (hx) 06/08/2022 AD BLOOM DIRECTIVE Care Teams Ticker Maintainer Relationship Specialty Start Date End Date Nelson Sanchez MD [address] [place] [id number] PCP - General Internal Medicine 07/18/24
--- OUTSIDE RECORDS SUMMARY | 2025-03-20 13:42 | XMS_ITS | Data Portability ---
Author Organization [facility], [facility] Address [address] [place] [phone] Care Team Providers Care Lab Analyst Name Role Phone HIM CCA OTHER Assessment No assessment recorded. Plan of Treatment Reminders Order Date Submit Date Provider Last Modified By Organization Details Last Modified Time Details Appointments None recorded. Lab BMP, serum or plasma [address], [phone] 20:57:22 Referral None recorded. Procedures None recorded. Surgeries None recorded. Imaging electrocard iogram 20[address], [phone] 4 20:58:58 Medication Orders sodium chloride 0.9 % intravenous solution 2023 024 gbaci Not available 20:56:34 Patient TargetsNo targets recorded. Patient Instructions Encounter Date Encounter Id Patient Instructions Last Modified By Organization Details Last Modified Time 02/24/2024 [id number] orthostatic vitals* BETINA Not available 02/26/2025 05:00:49 Reason for Referral None Reported. Results Created Date Observation Date Name Description Value Unit Range Abnormal Flag Note LastModifiedBy Organization Detail LastModifiedTime 02/24/2002/24/2024 BMP, serum or plasm a BUN 140 Not Available [facility] - [facility] [address], [phone] 02/24/2024 20:56:20 02/24/20 24 02/24/2024 BMP, serum or plasm a Ca 1.23 Not Available [facility] [address], [phone] 02/24/2024 20:56:20 02/24/20 24 02/24/2024 BMP, serum or plasm a CI- 103 Not Available [facility] - [facility] [address], [address] [place] [address] 02/24/2024 20:56:20 02/24/20 24 02/24/2024 BMP, serum or plasm a CRE 0.8 Not Available [facility] [address], [address] [place] [address] 02/24/2024 20:56:20 02/24/20 24 02/24/2024 BMP, serum or plasm a GLU 90 Not Available [facility] [address], [address] [place] [address] 02/24/2024 20:56:20 02/24/20 24 02/24/2024 BMP, serum or plasm a K+ 4.2 Not Available [facility] [address], [address] [place] [address] 02/24/2024 20:56:20 02/24/20 24 02/24/2024 BMP, serum or plasm a Na+ 140 Not Available [facility] [address], [address] [place] [address] 02/24/2024 20:56:20 02/24/20 24 02/24/2024 BMP, serum or plasm a tCO2 29 Not Available [facility] - Ins [address], [address] [place] [address] 02/24/2024 20:56:20 02/24/20 24 02/24/2024 elect alejandra diogr am No observ ation record ed. gbaci [address], [address] [place] [address] 02/24/2024 20:58:57 Result Notes None recorded. Medical [...] cm 100 % 100 % 66 /min 96071.4 32 g 116/76 mm[Hg] 111/66 mm[Hg] Not Available [employer] - production 4 20:52:03 Social History None recorded. Functional Status None recorded. Mental Status None recorded. Family History Nothing Reported. Medical History No medical history recorded. Gynecological HistoryNo gynecological history recorded. Obstetrics History GPAL:G 0 P 0 0 0 0 Past Encounters Encounter ID Performer Location Encounter Start Date Encounter Closed Date Diagnosis/Indication Diagnosis SNOMED-CT Code Diagnosis ICD10 Code Diagnosis Note [id number] FRANNIE CONDE MD Main - [address] [phone] 02/24/2024 20:51:45 02/24/2024 21:28:46 Mild dehydration 5038299895 108 E86.0 Evaluation in the field was performed by my health center assistant colleague. As noted above, I provided real-time [...] Gan Member ID Guarantor Name 02/24/2024 1 [facility] - DOS ON OR AFTER 2022 - DUAL ELIGIBLE - SHELTER OPTIONS AND ONE CARE (MEDICARE REPLACEMENT/AD VANTAGE - HMO) Kitty Herbert [id number] Kitty Herbert OBGyn Episode No OBEpisode recorded.
== END 2025-03-20 13:28 | disposition home or self-care (01) ==
LOC: HO.HOS 13:03
PROVIDERS: PCP Internal Medicine; Visit Provider Orthopaedic Surgery
DX: M17.0 Bilateral primary osteoarthritis of knee (principal)
CPT/HCPCS: 99203; G2211

== ENCOUNTER → 2025-03-20 13:04 | Outpatient (BNV) | payer OTHER, SELFPAY | PROVIDERS: Visit Provider Radiology Diagnostic Radiology | DX: M17.0 Bilateral primary osteoarthritis of knee (principal) | CPT/HCPCS: 73562 ==

== ENCOUNTER 2025-04-03 13:28 | Outpatient (AMB) | payer OTHER, SELFPAY ==
--- NOTE | 2025-04-03 13:37 | A.OFFVIS_ITS ---
Vital Signs 04/03/25 13:41 Height 5 ft 2 in Weight 147 lb BMI 26.9 Intake Visit Reasons: Inj- Bilateral knee Durolane Intake Note: Kitty is a 64 year old female who presents with complaints of bilateral knee pains. She describes her pains as sharp in nature. Her symptoms have gotten worse over the last few years in spite of continued non operative treatments. She has tried Tylenol and anti-inflammatory medicines which gave her minimal relief. She wishes to hold off on surgery if at all possible. Mainframe Architect Required: Yes Mainframe Architect Services: Mainframe Architect Offered & Declined Mainframe Architect Name: Daughter- Diomara Allergies shrimp Allergy (Intermediate, Uncoded 03/20/25 13:17) Rash Blueberry fruits and blueberry Allergy (Unknown, Uncoded 06/03/18 00:00) Uticaria/hives Medication List - Last Reconciled 04/04/25 by Sam Hardy MD acetaminophen 500 mg PO Q6H PRN atorvastatin 10 mg PO DAILY betamethasone valerate 0.1% 1 appl topical BID PRN blood sugar diagnostic (FreeStyle Lite Strips) As directed blood-glucose meter (Blood Glucose Monitoring kit) As directed famotidine 20 mg PO BID lancets (FreeStyle Lancets) As directed meclizine 25 mg PO TID PRN naproxen 500 mg PO BID semaglutide (Ozempic) 1 mg subcut QWEEK Physical Exam Vital Signs: BMI result Body Mass Index 26.9 Const Other: Well-nourished well-developed very friendly female awake alert and oriented x3 in no acute distress Extrem Other: Bilateral knee examination shows minimal effusions, palpable crepitus with range of motion, pain with range of motion, no instability Office Procedures AMB Joint Injection/Aspiration Joint Injection/Aspiration Primary Site: right knee Prep: site was prepped using aseptic technique Injected: 60 mg of (Durolane viscosupplementation) and 1% plain lidocaine Procedure: The patient tolerated the procedure well Coding 44028 - Large joint Procedure code (CPT) selection complete AMB Joint Injection/Aspiration Joint Injection/Aspiration Primary Site: left knee Prep: site was prepped using aseptic technique Injected: 60 mg of (Durolane viscosupplementation) and 1% plain lidocaine Procedure: The patient tolerated the procedure well Coding 10736 - Large joint Procedure code (CPT) selection complete Assessment & Plan Assessment & Plan (1) Osteoarthritis of left knee: Code(s): M17.12 - Unilateral primary osteoarthritis, left knee Category: Medical (2) Osteoarthritis of right knee: Code(s): M17.11 - Unilateral primary osteoarthritis, right knee Category: Medical Plan Ms. Herbert presents with bilateral knee pains due to osteoarthritis. The risks and benefits of bilateral knee Durolane viscosupplementation injections were discussed at length with the patient. The patient wished to proceed. She tolerated the injections well. She will continue with her home exercise program. She will contact me prior to her follow-up appointment in 3 months should any questions or concerns arise. Feel free to call me at any time should questions regarding her orthopedic management arise. I spent 20 minutes in reviewing the patient's records and imaging studies, seeing the patient and documenting in the medical record. Orders: Orders AMB Joint Injection/Aspiration 04/03/25 M17.12 - Unilateral primary osteoarthritis, left knee AMB Joint Injection/Aspiration 04/03/25 M17.11 - Unilateral primary osteoarthritis, right knee Coding Level of Care Code Est Pt Level 3 (24400) Complex EM visit Add On G2211 Diagnoses Osteoarthritis of left knee M17.12 Osteoarthritis of right knee M17.11 CPT Codes Coding - 24524 Large joint: 01121 - Large joint ([id number]) Coding - 89208 Large joint: 85545 - Large joint ([id number])
--- OUTSIDE RECORDS SUMMARY | 2025-04-03 13:38 | XMS_ITS | Clinical Summary ---
Author Organization [facility] Address [address] [facility] [address] [place] [address] Phone Care Team Providers Care Marketing Database Analyst Name Role Phone Nelson Sanchez MD Primary [...] REPLACEMENT MEDICARE REPLACEMENT MEDICARE REPLACEMENT Care Teams Marketing Database Analyst Relationship Specialty Start Date End Date Nelson Sanchez MD [address] [place] [id number] PCP - General Internal Medicine 03/03/24 Additional Source Comments The information contained in this document represents components of the legal health record. It is not the complete legal health record.[facility]
--- OUTSIDE RECORDS SUMMARY | 2025-04-03 13:39 | XMS_ITS | Clinical Summary ---
Author Organization [facility] [address] [place] [address] Address [address] [place] [address] Phone Care Team Providers Care Hardware Installer Name Role Phone Nelson Sanchez MD Primary Care Provider [phone] Allergies Active Allergy Reactions Criticality Noted Date [...] (BMI) of 39.0 to 39.9 in adult ([facility] V24, [facility] V28) 06/09/2024 Other specified health status 06/09/2024 Overview (06/09/2024): Osteoarthrosis, unspecified whether generalized or localized, unspecified site Lumbar spondylosis 11/09/2023 Sacroiliitis ([facility] V24) 11/09/2023 Diabetic retinopathy ([facility] V24, [facility] V28) 05/13/2023 High [...] Type 2 diabetes mellitus wit h cataract ([facility] V24, [facility] V28) 02/07/2019 Depression [...] 01/24/2025 1:15 PM EDT Office Visit Endocrinology [address] [phone] Angelica Braden PA Type 2 diabetes mellitus with cataract ([facility] V24, [facility] V28) (Primary Dx) 01/03/2025 3:30 PM EDT Office Visit Adult Medicine [address] [phone] Lavonne Yu PA Type 2 diabetes mellitus with cataract ([facility] V24, [facility] V28) (Primary Dx); [...] History Medical History Date Comments Morbid obesity ([facility] V24, [facility] V28) 03/30/2007 DX:Morbid obesity (HCC) Osteoarthrosis, unspecified whether generalized or localized, unspecified site 03/30/2007 DX:Osteoarthrosis, unspecifi ed whether generalized or localized, unspecified site; COMMENT: ankles and right knee pain Vitamin D deficiency 05/13/2012 DX:Vitamin D deficiency Diabetes mellitus type 2, co ntrolled, with complications ([facility] V24, [facility] V28) DX:Diabetes mellitus type 2, controlled, with complications (HCC) Glaucoma 12/08/2016 DX:Glaucoma Secondary hypertension 04/11/2021 DX:Second isai hypertension Type 2 diabetes mellitus wit h eye manifestations ([facility] V24, [facility] V28) 05/13/2023 DX:Type 2 diabetes mellitus with eye manifestations (HCC) Diabetic retinopathy ([facility] V24, [facility] V28) 05/13/2023 DX:Diabetic [...] for your loved ones. For example, child care cook or elderly care for an older adult? [...] PM EDT Office Visit Bariatric Surgery - [address] [place] [address] [phone] Tiki Potter MD [address] [place] [address] 04/13/2025 9:30 AM EDT Consult Vascular Surgery - [place] [address] [place] [address] Florence Curry MD [address] [facility] [address] [place] [address] 06/08/2025 2:00 PM EDT Office Visit Adult Medicine South - [address] [phone] Nelson Sanchez MD [address] [place], [place] 07/26/2025 1:15 PM EST Office Visit Endocrinology - [address] [phone] Angelica Braden PA [address] [place] [address] 12/04/2025 1:00 PM EDT Appointment Radiology Department - [address] [phone] Health Maintenance Due Date Last Done Comments [...] EDT Type 2 diabetes mellitus with cataract ([facility] V24, [facility] V28) HEMOGLOBIN A1C Routine 01/17/2025 8:47 AM EDT Type 2 diabetes mellitus with cataract ([facility] V24, [facility] V28) LIPID PANEL WITH REFLEX TO DIRECT LDL Routine 01/17/2025 8:47 AM EDT Type 2 diabetes mellitus with cataract ([facility] V24, [facility] V28) High cholesterol [...] nal Result [facility] [address] [place] [address], * Hemoglobin A1c (01/17/2025 8:47 AM EDT) [...] nal Result [facility] [address] [place] [address], [place] [phone] * Basic metabolic panel (01/17/2025 8:47 AM EDT) Sodium 138 133 - 145 mmol/L LAB CHEMISTRY METHOD 01/17/2025 4:40 PM [facility] Potassium 4.5 3.5 - 5.5 mmol/L LAB CHEMISTRY METHOD 01/17/2025 4:40 PM [facility] Chloride 106 96 - 110 mmol/L LAB CHEMISTRY METHOD 01/17/2025 4:40 PM [facility] CO2 26 21 - 32 mmol/L LAB CHEMISTRY METHOD 01/17/2025 4:40 PM [facility] Anion Gap 6 3 - 11 LAB CHEMISTRY METHOD 01/17/2025 4:40 PM [facility] Glucose 80 70 - 100 mg/dL LAB CHEMISTRY METHOD 01/17/2025 4:40 PM [facility] BUN 22 5 - 25 mg/dL LAB CHEMISTRY METHOD 01/17/2025 4:40 PM [facility] Creatinine 0.67 0.50 - 1.10 mg/dL LAB CHEMISTRY METHOD 01/17/2025 4:40 PM [facility] eGFR 98 >=60 mL/min/1. 73m2 LAB CHEMISTRY METHOD 01/17/2025 4:40 PM [facility] Comment:Calculation based on the Chronic Kidney Disease Epidemiology Collaboration (CKD-EPI) equation refit without adjustment for race. BUN/Creatinine Ratio 32.8 LAB CHEMISTRY METHOD 01/17/2025 4:40 PM [facility] Calcium 9.6 8.5 - 10.5 mg/dL LAB CHEMISTRY METHOD 01/17/2025 4:40 PM [facility] Blood Venous blood specimen / Unknown Venipuncture / Unknown 01/17/2025 8:47 AM EDT 01/17/2025 8:47 AM EDT us Lavonne RODRIGUEZ LAB BLOOD ORDERABLES Fi nal [facility] [address] [place] [address], [place] [phone] * MG Mammo Digital Diagnostic w Alfonzo [...] is recommended in 1 year. MAMMO LOCATION: [facility], [address] [place] [address], [phone], . -------- FINAL REPORT -------- Dictated By: Jaky Flowers Dictated Date: 11/28/2024 13:31 ET Assigned Physician: Jaky Flowers Reviewed and Electronically Signed By: Jaky Flowers Signed Date: 11/28/2024 13:35 ET Workstation ID: [id number] Transcribed By: Self Edit Transcribed Date: 11/28/2024 [...] Result * Urine Albumin Creatinine Ratio (01/19/2024) [facility] Urine Albumin Creatinine Ratio ABSTRACTED Result [facility] Provider HEALTH MAINTENANCE Final Result * Diabetes Eye Exam (11/23/2023) [facility] Diabetes: Annual Retina Eye Exam ABSTRACTED Result [facility] Provider HEALTH MAINTENANCE Final Result * Depression Screening (11/05/2023) [facility] Depression Screening ABSTRACTED Result [facility] Provider HEALTH MAINTENANCE Final Result * Cervical Cancer Screening: HPV (02/19/2023) [facility] Cervical Cancer Screening: HPV negative,a bstracted Result [facility] Provider HEALTH MAINTENANCE Final Result * Colonoscopy (03/14/2021) [facility] Colonoscopy no interpretation , abstracted Anatomical Region Laterality Modality Other Result [facility] Provider HEALTH MAINTENANCE Final Result * HIV Screening (02/08/2013) [facility] HIV Screening ABSTRACTED Result [facility] Provider HEALTH MAINTENANCE Final Result * Hepatitis C Screening (02/08/2013) [facility] Hepatitis C Screening ABSTRACTED Result [facility] Provider HEALTH MAINTENANCE Final Result from Last 3 Months or Most Recently Relevant to Health Maintenance Insurance [facility] MEDICARE Member Subscriber Plan / Payer (Ef fective 2022-Present) Name:SIL HERBERT Relation to Subscriber:Self Name:Sil Herbert Payer ID:[id number] Group ID:[id number] Type:Not on file Address: [address] [place] [id number] Advance Directives Documents on File Type Date Recorded 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
[2025-04-03 13:41] VITALS: BMI 26.9
== END 2025-04-03 14:21 | disposition home or self-care (01) ==
LOC: HO.HOS 13:28
PROVIDERS: Visit Provider Orthopaedic Surgery
DX: M17.0 Bilateral primary osteoarthritis of knee (principal)
CPT/HCPCS: 20610

== ENCOUNTER → 2025-04-03 13:28 | Outpatient (BNVA) | payer OTHER, SELFPAY | PROVIDERS: Visit Provider Orthopaedic Surgery | DX: M17.11 Unilateral primary osteoarthritis, right knee (principal); M17.12 Unilateral primary osteoarthritis, left knee | CPT/HCPCS: 20610; J2003; J7318 ==

== ENCOUNTER 2025-07-04 12:58 | Outpatient (AMB) | payer OTHER, SELFPAY ==
--- NOTE | 2025-07-04 13:02 | MHC.OFFVIS ---
Vital Signs 07/04/25 13:09 Height 5 ft 2 in Weight 147 lb BMI 26.9 Intake Visit Reasons: Bilateral knee pain Intake Note: Kitty is a 65 year old female who presents with complaints of bilateral knee pains. She describes her pains as sharp in nature. She has failed the last 3 months of conservative treatment which has included Tylenol, anti-inflammatory medicines and a home exercise program. At this point her bilateral knee pains are interfering with her activities of daily living and her ability to sleep well through the night. She wishes to hold off on surgery if at all possible. She has had cortisone injections which gave her no relief. Allergies shrimp Allergy (Intermediate, Uncoded 07/04/25 13:08) Rash Blueberry fruits and blueberry Allergy (Unknown, Uncoded 07/04/25 13:08) Uticaria/hives Medication List - Last Reconciled 07/04/25 by Sam Hardy MD acetaminophen 500 mg PO Q6H PRN atorvastatin 10 mg PO DAILY betamethasone valerate 0.1% 1 appl topical BID PRN blood sugar diagnostic (FreeStyle Lite Strips) As directed blood-glucose meter (Blood Glucose Monitoring kit) As directed famotidine 20 mg PO BID lancets (FreeStyle Lancets) As directed meclizine 25 mg PO TID PRN naproxen 500 mg PO BID semaglutide (Ozempic) 1 mg subcut QWEEK PFSH Medical History (Updated 07/04/25 @ 13:10 by ODESSA Morales) Bilateral knee pain Osteoarthritis of right knee Osteoarthritis of left knee Social History (Updated 07/04/25 @ 13:10 by ODESSA Morales) Alcohol intake: never Patient Tobacco Use Status: Never used Tobacco Physical Exam Vital Signs: BMI result Body Mass Index 26.9 Const Other: Well-nourished well-developed very friendly female awake alert and oriented x3 in no acute distress Extrem Other: Bilateral knee examination shows minimal effusions, palpable crepitus with range of motion, pain with range of motion, no instability Results Reviewed Results Reviewed: X-rays of the patient's bilateral knees taken previously show joint space narrowing, subchondral sclerosis, no acute bony abnormalities Assessment & Plan Assessment & Plan (1) Bilateral knee pain: Code(s): M25.561 - Pain in right knee; M25.562 - Pain in left knee Category: Medical Plan Ms. Herbert presents with bilateral knee pains due to osteoarthritis. I had a lengthy discussion with the patient regarding the treatment options. She wishes to hold off on surgery if at all possible. I agree with this plan. I will see if her insurance company will cover a Durolane injection for both of her knees. I will see her back once the injections are available. Feel free to call me at any time should questions regarding her orthopedic management arise. I spent 22 minutes in reviewing the patient's records and imaging studies, seeing the patient and documenting in the medical record. Coding Level of Care Code Est Pt Level 3 (62842) Complex EM visit Add On G2211 Diagnoses Bilateral knee pain M25.561; M25.562
[2025-07-04 13:09] VITALS: BMI 26.9
--- OUTSIDE RECORDS SUMMARY | 2025-07-04 14:42 | XMS_ITS | Data Portability ---
Author Organization [facility] Address [address] [place] [phone] Care Team Providers Care Net Web Application Developer Name Role Phone HIM CCA OTHER Assessment No assessment recorded. Plan of Treatment Reminders Order Date Submit Date Provider Last Modified By Organization Details Last Modified Time Details Appointments None recorded. Lab BMP, serum or plasma [address], [phone] 20:57:22 Referral None recorded. Procedures None recorded. Surgeries None recorded. Imaging electrocard iogram [address], [phone] 4 20:58:58 Medication Orders sodium chloride 0.9 % intravenous solution 2023 024 [facility] Not available 20:56:34 Patient TargetsNo targets recorded. Patient Instructions Encounter Date Encounter Id Patient Instructions Last Modified By Organization Details Last Modified Time 02/24/2024 [id number] orthostatic vitals* BETINA Not available 02/26/2025 05:00:49 Reason for Referral None Reported. Results Created Date Observation Date Name Description Value Unit Range Abnormal Flag Note LastModifiedBy Organization Detail LastModifiedTime 02/24/2002/24/2024 BMP, serum or plasm a BUN 140 Not Available [facility] [address], [phone] 02/24/2024 20:56:20 02/24/2002/24/2024 BMP, serum or plasm a Ca 1.23 Not Available [facility] [address], [phone] 02/24/2024 20:56:20 02/24/20 24 02/24/2024 BMP, serum or plasm a CI- 103 Not Available [facility] [address], [address] [place] [address] 02/24/2024 20:56:20 02/24/20 24 02/24/2024 BMP, serum or plasm a CRE 0.8 Not Available [facility] [address], [address] [place] [address] 02/24/2024 20:56:20 02/24/20 24 02/24/2024 BMP, serum or plasm a GLU 90 Not Available [facility] [address], [address] [place] [address] 02/24/2024 20:56:20 02/24/20 24 02/24/2024 BMP, serum or plasm a K+ 4.2 Not Available [facility] [address], [address] [place] [address] 02/24/2024 20:56:20 02/24/20 24 02/24/2024 BMP, serum or plasm a Na+ 140 Not Available [facility] - [facility] [address], [address] [place] [address] 02/24/2024 20:56:20 02/24/20 24 02/24/2024 BMP, serum or plasm a tCO2 29 Not Available [facility] - Ins [address], [address] [place] [address] 02/24/2024 20:56:20 02/24/20 24 02/24/2024 elect alejandra diogr am No observ ation record ed. [email or web address] [address], [address] [place] [address] 02/24/2024 20:58:57 Result Notes None recorded. Medical [...] cm 100 % 100 % 66 /min 99303.4 32 g 116/76 mm[Hg] 111/66 mm[Hg] Not Available [employer] - production 4 20:52:03 Social History None recorded. Functional Status None recorded. Mental Status None recorded. Family History Nothing Reported. Medical History No medical history recorded. Gynecological HistoryNo gynecological history recorded. Obstetrics History GPAL:G 0 P 0 0 0 0 Past Encounters Encounter ID Performer Location Encounter Start Date Encounter Closed Date Diagnosis/Indication Diagnosis SNOMED-CT Code Diagnosis ICD10 Code Diagnosis IMO Codes Diagnosis Note [id number] FRANNIE CONDE MD Main - [address] [phone] 02/24/2024 20:51:45 02/24/2024 21:28:46 Mild dehydration 8628232595 108 E86.0 Evaluation in the field was performed by my shirt creaser colleague. As noted above, I provided real-time [...] Gan Member ID Guarantor Name 02/24/2024 1 [facility] - DOS ON OR AFTER 2022 - DUAL ELIGIBLE - HALF-WAY OPTIONS AND ONE CARE (MEDICARE REPLACEMENT/AD VANTAGE - HMO) Kitty Herbert [id number] Kitty Herbert Notes Date Note Type Note [...] to process this visit. FRANNIE CONDE MD [address] [place] [address],[facility], [place], [phone], [employer] 02/24/2024 21:12:31 OBGyn Episode No OBEpisode recorded.
--- OUTSIDE RECORDS SUMMARY | 2025-07-04 14:42 | XMS_ITS | Encounter Summary ---
Author Organization [facility] Address [address] [facility] [address] [place] [phone] Phone Care Team Providers Care Wood Grinder Operator Name Role Phone Nelson Sanchez MD Primary Care Provider + Reason for Visit * Reason Comments Medication Refill Encounter Details Date Type Department Care Team (Late st Contact Info) Description 04/03/2025 Refill [facility] [address] [place] [phone] Deonte Leon PA [address] [place] [phone] [email or web address] Medication Refill Social History Tobacco Use Types Packs/Day Years Used Date Smoking Tobacco: Never Alcohol Use Standard Drinks/Week Comments Not Currently [...] on file Sexual Orientation Not on file documented as of this encounter Progress Notes * Nida Gold, MMD UNIT TEACHER - 04/04/2025 8:16 AM EDT This provider is no longer working here they are @ [facility]. documented in this encounter Plan of Treatment Not on file documented as of this encounter Visit Diagnoses Not on filedocumented in this encounter Care Teams Wood Grinder Operator Relationship Specialty Start Date End Date Nelson Sanchez MD [address] [place] [phone] PCP - General Internal Medicine 03/03/24 documented as of this encounter Additional Source Comments The information contained in this document represents components of the legal health record. It is not the complete legal health record.[facility]
--- OUTSIDE RECORDS SUMMARY | 2025-07-04 14:42 | XMS_ITS | Clinical Summary ---
Author Organization [facility] Address [address] [facility] [address] [place] [address] Phone Care Team Providers Care Solar Sales Advisor Name Role Phone Nelson Sanchez MD Primary [...] (two) times a day. 30 g 2 4 Active Active Problems Problem Noted Date Diagnosed Date Abdominal pannus 03/28/2024 Intertrigo 03/28/2024 Encounters Date Type Department Care Team Description 04/03/2025 Refill [facility] Plastic Surgery [address] [place] [address] Deonte Leon PA Medication Refill from Last 3 Months Family History Medical History Relation Comments Diabetes [...] 2010 ZOSTER VACCINES (1 of 2) 2010 INFLUENZA VACCINE (#1) 2025 COVID-19 VACCINE (1 - 2024-2 6 season) 2025 OSTEOPOROSIS SCREENING INITI AL (ONE-TIME) 2025 LIPID PANEL 01/13/2029 01/14/2024 Adult Td,Tdap Booster 07/24/2030 07/24/2020 , 11/01/2009 RSV VACCINE (1 - 1-dose 75+ series) 2035 HEPATITIS A VACCINES Aged Out No long er eligible based on patient's age to complete this topic HIB VACCINES Aged Out No longer eligi ble based on patient's age to complete this topic IPV VACCINES Aged Out No longer eligi ble based on patient's age to complete this topic MENINGOCOCCAL VACCINES (ACWY) Aged Out No longer eligible based on patient's age to complete this topic MENINGOCOCCAL VACCINES (B) Aged Out N o longer eligible based on patient's age to complete this topic Medical Devices Not on [place] [id number] MEDICARE REPLACEMENT MEDICARE REPLACEMENT MEDICARE REPLACEMENT [place] [id number] MEDICARE REPLACEMENT MEDICARE REPLACEMENT [place] [id number] Care Teams Solar Sales Advisor Relationship Specialty Start Date End Date Nelson Sanchez MD [address] [place] [phone] PCP - General Internal Medicine 03/03/24 Additional Source Comments The information contained in this document represents components of the legal health record. It is not the complete legal health record.[facility]
--- OUTSIDE RECORDS SUMMARY | 2025-07-04 14:42 | XMS_ITS | Clinical Summary ---
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 Avoid face and genital area. 01/19/20 24 Active naproxen (NAPROSYN) 500 mg tablet Take 1 Tablet by mouth 2 times daily as needed for Pain. 08/05/20 23 Active blood-glucose meter kit 1 Device by Does not apply route daily. 04/29/20 23 Active famotidine (PEPCID) 20 mg tablet Take 1 Tablet by mouth 2 times daily for 180 days. 09/18/19 23 Active acetaminophen (TYLENOL) 500 mg tablet Take 2 Tablets by mouth every 8 hours for 30 days. 05/27/20 22 Active wheat dextrin 3 gram/4 gram powder Take 4 g by mouth daily. 05/27/20 22 Active ketoconazole (NIZORAL) 2 % cream Apply 2 g topically daily for 14 days. 04/07/20 22 Active cholecalcifer ol (VITAMIN D-3) 1,250 mcg (50,000 unit) capsule Take 1 capsule by mouth once a week. 10/11/19 22 Active loratadine (CLARITIN) 10 mg tablet Take 1 tablet (10 mg total) by mouth 1 (one) time each day. 04/17/20 Active meclizine (ANTIVERT) 25 mg tablet TAKE 1 TABLET BY MOUTH 3 TIMES DAILY NEEDED FOR VERTIGO/DIZZIN ESS 90 tablet 1 08/23/20 Active Additional Information Patient not taking.Reported on 04/13/2025 atorvastatin (LIPITOR) 10 mg tablet TAKE 1 TABLET BY MOUTH EVERY DAY 90 tablet 1 01/19/20 Active nystatin (MYCOSTATIN) ointment Apply topically 2 (two) times a day. 30 g 2 04/13/20 25 026 Active blood sugar diagnostic (FreeStyle Lite Strips) test strip Use to check bs daily 100 each 06/08/20 Active freestyle (FreeStyle Lancets) 28 gauge lancets Use to check BS daily 100 each 06/08/20 Active fluticasone propionate (FLONASE) 50 mcg/actuation nasal spray Administer 2 sprays into each nostril 1 (one) time each day. Shake gently. Before first use, prime pump. After use, clean tip and replace cap. 16 g 5 06/08/20 026 Active semaglutide (Ozempic) 0.25 mg or 0.5 mg (2 mg/3 mL) injection pen INJECT 0.5 MG UNDER THE SKIN EVERY 7 (SEVEN) DAYS. 3 mL 5 06/16/20 Active Ozempic 0.25 mg or 0.5 mg (2 mg/3 mL) injection pen INJECT 0.5 MG UNDER THE SKIN EVERY 7 (SEVEN) DAYS. 3 mL 5 01/11/20 025 Discontinued freestyle (FreeStyle Lancets) 28 gauge lancets Use to check BS daily 100 each 01/25/20 025 Discontinued(Re order) blood sugar diagnostic (FreeStyle Lite Strips) test strip Use to check bs daily 100 each 01/25/20 Discontinued(Re order) Active Problems Problem Noted Date Diagnosed Date Abdominal pannus 04/14/2025 Class 2 severe obesity due t o excess calories with serious comorbidity and body mass index (BMI) of 39.0 to 39.9 in adult 06/09/2024 Other specified health status 06/09/2024 Overview (06/09/2024): Osteoarthrosis, unspecified whether generalized or localized, unspecified site Lumbar spondylosis 11/09/2023 Sacroiliitis ([facility] V24) 11/09/2023 Diabetic retinopathy ([facility] V24, [facility] V28) 05/13/2023 High cholesterol 10/11/2021 Secondary [...] Type 2 diabetes mellitus wit h cataract ([facility] V24, [facility] V28) 02/07/2019 Depression 10/27/2017 Pes planus [...] Encounters Date Type Department Care Team Description 06/27/2025 12:45 PM EST Ancillary Procedure [facility] [address] [facility] [address] [place] [phone] Varicose veins of leg with pain, bilateral 2025 Results Follow-Up [address] [phone] Nelson Sanchez MD 2025 Results Follow-Up [address] [phone] Nelson Sanchez MD 06/08/2025 2:30 PM EDT - 06/08/2025 11:59 PM EDT Hospital Encounter [address] [phone] Low back pain without sciatica, unspecified back pain laterality, unspecified chronicity Discharge Disposition: Home or Self Care 06/08/2025 2:00 PM EDT Office Visit [address] [phone] Nelson Sanchez MD Routine physical examination (Primary Dx); Other specified counseling; 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 (CMS/HCC V24, CMS/HCC V28); High cholesterol; Encounter for long-term (current) use of medications; Low back pain without sciatica, unspecified back pain laterality, unspecified chronicity; Diabetic polyneuropathy associated with type 2 diabetes mellitus (CMS/HCC V24, CMS/HCC V28); Overweight (BMI 25.0-29.9); Subacute cough; Post-nasal drip 05/25/2025 Telephone General Surgery [facility] [address] [facility] [address] [place] [address] Rafi Gutierrez DO 04/13/2025 1:00 PM EDT Consult Plastic & Reconstructive Surgery [facility] [address] [facility] [address] [place] [address] Nichole Case PA Abdominal pannus (Primary Dx); Intertrigo 04/13/2025 9:30 AM EDT Consult Vascular Surgery [facility] [address] [facility] [address] [place] [address] Florence Curry MD Varicose veins of leg with pain, bilateral (Primary Dx); Varicose veins of both lower extremities, unspecified whether complicated 04/11/2025 1:15 PM EDT Office Visit Bariatric Surgery - [address] [place] [address] Tiki Potter MD Over weight (Primary Dx) from Last 3 Months Immunizations Immunization Administration Dates Next Due H1N1 Inj Preservative Free 08/03/2009 Influenza Quadravalent, MDCK , 0.5ml, preservative free (Flucelvax) 6mo and older 06/03/2021,07/24/2020,06/16/2018 Influenza Quadrivalent, 0.5m l, preservative free (Fluarix; FluLaval; Fluzone) ages 6mo and older (Afluria) 3yo and older 06/06/2022 Influenza trivalent, 0.5mL, preservative free (Fluarix; FluLaval; Fluzone) ages 6mo and older (Afluria) 3 years and older 06/15/2015,06/07/2014,05/13/2010 Influenza trivalent, recombi nant, 0.5mL, preservative free (Flublok) 9yo and older 06/04/2025 Pneumococcal polysaccharide 23 valent (Pneumovax 23) 2yo and older 01/29/2017 Tdap Tetanus diptheria acell ular pertussis (Boostrix; Adacel) 7yo and older 07/24/2020,11/01/2009 Zoster recombinant (Shingrix ) 19yo and older 12/22/2021 Surgical History Surgery Date Site/Laterality Comments TUBAL LIGATION PROCEDURE: HISTORICAL TUBAL LIGATION OVARIAN CYST REMOVAL 08/24/2004 PROCEDURE: [place] OVARIAN CYSTECTOMY UNI/BI; COMMENT: ? paraovarian cyst COLONOSCOPY 07/10/2010 PROCEDURE: HISTORICAL COLONOSCOPY; COMMENT: [facility]; [place]; negative but poor prep. COLONOSCOPY 03/14/2021 PROCEDURE: HISTORICAL COLONOSCOPY; COMMENT: negative Medical History Medical History Date Comments Morbid obesity (CMS/HCC V24, CMS/HCC V28) 03/30/2007 DX:Morbid obesity (HCC) Osteoarthrosis, unspecified whether generalized or localized, unspecified site 03/30/2007 DX:Osteoarthrosis, unspecifi ed whether generalized or localized, unspecified site; COMMENT: ankles and right knee pain Vitamin D deficiency 05/13/2012 DX:Vitamin D deficiency Diabetes mellitus type 2, co ntrolled, with complications ([facility] V24, [facility] V28) DX:Diabetes mellitus type 2, controlled, with complications (HCC) Glaucoma 12/08/2016 DX:Glaucoma Secondary hypertension 04/11/2021 DX:Second isai hypertension Type 2 diabetes mellitus wit h eye manifestations ([facility] V24, [facility] V28) 05/13/2023 DX:Type 2 diabetes mellitus with eye manifestations ([facility]) Diabetic retinopathy ([facility] V24, [facility] V28) 05/13/2023 DX:Diabetic retinopathy ([facility] ) Family History Medical History Relation Name [...] you may not have stable housing? No 06/08/2025 Food Access & Nutrition Answer Date Rec orded Do you have access to a vari ety of food including fruits and vegetables? Yes 06/08/2025 Access to Healthcare Answer Date Record ed Within the last 3 months, ho w many times did you visit the emergency department for your medical care? 0 06/08/2025 Health Literacy Answer Date Recorded How often do you need to hav e someone help you when you read instructions, pamphlets, or other written material from your doctor or pharmacy? Often 06/08/2025 Caregiver: How often do you need to have someone help you when you read instructions, pamphlets, or other written material from your doctor or pharmacy? Not on file 06/08/2025 Financial Risk Answer Date Recorded How hard is it for you to pa y for the very basics like food, housing, medical care, and air conditioning / heating? Somewhat hard 06/08/2025 Transportation Answer Date Recorded Has the lack of transportati on kept you from meetings, work, or from getting things needed for daily living? Yes Has the lack of transportati on kept you from medical appointments or from getting medications? Yes 06/08/2025 Social Isolation Answer Date Recorded How often do you feel lonely or isolated from those around you? Sometimes 06/08/2025 Food Risk Answer Date Recorded Within the past 12 months we worried whether our food would run out before we got money to buy more. Never true 06/08/2025 Within the past 12 months th e food we bought just didn't last and we didn't have money to get more. Never true 06/08/2025 Dependent Care Answer Date Recorded Do you need help finding or paying for care for your loved ones. For example, childcare provider or elderly care for an older adult? No 06/08/2025 Education Answer Date Recorded Do you think completing more education or training, like finishing a GED, going to college, or learning a trade, would be helpful for you? No 06/08/2025 Employment and Income Answer Date Recor ded During the last four weeks, have you been actively looking for work? No 06/08/2025 Living Situation Answer Date Recorded What is your living situation? Unrecognized valu e 06/08/2025 Comments No Sex and Gender Information Value [...] Sign Reading Time Taken Comments Blood Pressure 106/58 06/08/2025 1:57 PM EDT Pulse 64 06/08/2025 1:57 PM EDT Temperature 36.4 C (97.5 F) 06/08/2025 1:57 PM EDT Respiratory Rate 14 06/08/2025 1:57 PM EDT Oxygen Saturation 98% 06/08/2025 1:57 PM EDT Inhaled Oxygen Concentration - - Weight 66.7 kg (147 lb) 06/08/2025 1:57 PM EDT Height 155.6 cm (5' 1.25 ) 06/08/2025 1:57 PM ED T Body Mass Index 27.55 06/08/2025 1:57 PM EDT Plan of Treatment Upcoming Encounters Date Type Department Care Team (Late st Contact Info) Description 07/10/2025 1:00 PM EST Office Visit Vascular Surgery [facility] [address] [facility] [address] [place] [address] Yue Singletary PA [address] [facility] [address] [place] [address] 07/26/2025 1:15 PM EST Office Visit Endocrinology - [address] [phone] Angelica Braden PA [address] [place] [address] 10/12/2025 11:15 AM EST Office Visit Bariatric Surgery - [place] [address] [facility] [address] [place] [phone] Tiki Potter MD [address] [place] [phone] 12/04/2025 1:00 PM EDT Appointment Radiology Department - [address] [phone] 12/15/2025 2:30 PM EDT Office Visit [facility] - [address] [phone] Nelson Sanchez MD [address] [place], [place] Scheduled Procedures Name Priority Associated Diagnoses Date/Ti me PANNICULECTOMY Abdominal pannus Health Maintenance Due Date Last Done Comments Medicare Annual Wellness Visit 08/02/2022 Osteoporosis Screening (Bone Density Screening) 08/02/2022 Diabetes: Annual Retina Eye Exam 11/22/2024 11/23/2023 Diabetes: Annual Foot Exam 04/05/2025 04/05/2024 Falls Risk Assessment 2025 COVID-19 Vaccine ( season) 2025 06/04/2025, 07/04/2024, 07/26/2023, Additional history exists Diabetes: Blood Sugar Control Test (HGBA1C) 12/07/2025 06/08/2025, 01/17/2025, 07/18/2024, Additional history exists Colorectal Cancer Screening: Colonoscopy 03/14/2026 03/14/2021 Diabetes: Annual Urine Albumin-Creatinine Ratio (uACR) 06/08/2026 06/08/2025, 01/19/2024 Diabetes: Annual GFR (Glomerular Filtration Rate) 06/08/2026 06/08/2025, 01/17/2025, 01/14/2024, Additional history exists Hypertension/CHF/CAD Annual BMP Blood Test 06/08/2026 06/08/2025, 01/17/2025, 01/14/2024, Additional history exists Social Influencers of Health Screening 06/08/2026 06/08/2025 Breast Cancer Screening 11/28/2026 11/29/19, 04/28/2024, 04/28/2024, Additional history exists Cervical Cancer Screening: HPV 02/20/2028 02/19/2023 Cholesterol Screening (Lipid Panel) 06/08/2030 06/08/2025, 01/17/2025, 01/14/2024, Additional history exists DTaP,Tdap,and Td Vaccines (3 - Td or Tdap) 07/24/2030 07/24/2020, 11/01/2009 Hepatitis C Screening Completed 02/08/2013 Zoster Vaccines Completed 03/02/2022, 12/22/2021 RSV Immunization Adult Patients Completed 07/26/2023 Pneumococcal Vaccine: 50+ Years Completed 07/04/2024, 01/29/2017 Depression Screening Completed 11/15/2024, 11/05/19 24 Influenza Vaccine Completed 06/04/2025, , 07/26/2023, Additional history exists HIB Vaccines Aged Out No longer eligi [...] Procedure Name Priority Date/Time Associated Diagnosis Comments CBC WITH AUTO DIFFERENTIAL Routine 06/08/2025 3:04 PM EDT Routine physical examination CBC AND DIFFERENTIAL Routine 06/08/2025 3:04 PM EDT Routine physical examination COMPREHENSIVE METABOLIC PANEL Routine 06/08/2025 3:04 PM EDT Routine physical examination 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 (CMS/HCC V24, CMS/HCC V28) Encounter for long-term (current) use of medications LIPID PANEL WITH REFLEX TO DIRECT LDL Routine 06/08/2025 3:04 PM EDT Routine physical examination High cholesterol HEMOGLOBIN A1C Routine 06/08/2025 3:04 PM EDT 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 (CMS/HCC V24, CMS/HCC V28) MICROALBUMIN CREATININE URINE RATIO Routine 06/08/2025 3:04 PM EDT 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 ([facility] V24, [facility] V28) XR LUMBAR SPINE 4+ VIEWS Routine 06/08/2025 2:58 PM EDT Low back pain without sciatica, unspecified back pain laterality, unspecified chronicity MG MAMMO DIGITAL DIAGNOSTIC W ALFONZO BILAT Routine 11/28/2024 1:15 PM EDT Other abnormal and inconclusive findings on diagnostic imaging of breast DIABETES EYE EXAM Routine 11/23/2023 DEPRESSION SCREENING Routine 11/05/2023 HPV Routine 02/19/2023 COLONOSCOPY Routine 03/14/2021 HEPATITIS C SCREENING Routine 02/08/2013 from Last 3 Months or Most Recently Relevant to Health Maintenance Results * Lipid panel with reflex to direct LDL (06/08/2025 3:04 PM EDT) Cholesterol 163 0 - 200 mg/dL LAB CHEMISTRY METHOD 06/08/2025 7:01 PM EDT [facility] Triglycerides 79 0 - 150 mg/dL LAB CHEMISTRY METHOD 06/08/2025 7:01 PM EDT [facility] HDL 69 >=40 mg/dL LAB CHEMISTRY METHOD 06/08/2025 7:01 PM EDT [facility] LDL Calculated 78 0 - 100 mg/dL LAB CHEMISTRY METHOD 06/08/2025 7:01 PM EDT [facility] Comment:Estimated LDL Calcul ated using equation: Total cholesterol - HDL cholesterol - (Triglycerides/5) VLDL Cholesterol Evaristo 15.8 mg/dL LAB CHEMISTRY METHOD 06/08/2025 7:01 PM EDT [facility] Non HDL Chol. (LDL+VLDL) 94 <145 mg/dL LAB CHEMISTRY METHOD 06/08/2025 7:01 PM EDT [facility] Chol/HDL Ratio 2.4 0.0 - 4.4 LAB CHEMISTRY METHOD 06/08/2025 7:01 PM EDT [facility] Blood Venous blood specimen / Unknown Venipuncture / Unknown 06/08/2025 3:04 PM EDT 06/08/2025 3:04 PM EDT us Nelson Sanchez MD LAB BLOOD ORDERABLES Final Resu lt [facility] [address] [place] [address], [place] [phone] * (ABNORMAL) CBC auto differential (06/08/2025 3:04 PM EDT) WBC 4.7(L) 4.8 - 10.8 K/mcL LAB HEMETOLOGY METHOD 06/08/2025 5:13 PM EDT [facility] RBC 4.10 3.80 - 4.80 M/[facility]OLOGY [facility]25 [facility] Hemoglobin 11.3(L) 11.5 - 16.0 g/dL LAB HEMETOLOGY METHOD 06/08/2025 5:13 PM EDT [facility] Hematocrit 36.1 35.0 - 47.0 % LAB HEMETOLOGY METHOD 06/08/2025 5:13 PM EDT [facility] MCV 89.1 79.0 - 98.0 FL LAB HEMETOLOGY METHOD 06/08/2025 5:13 PM EDT [facility] MCH 27.9 27.0 - 32.0 pcg LAB HEMETOLOGY METHOD 06/08/2025 5:13 PM EDT [facility] MCHC 31.3(L) 32.0 - 37.0 g/dL LAB HEMETOLOGY METHOD 06/08/2025 5:13 PM EDT [facility] RDW 14.0 11.0 - 15.0 % LAB HEMETOLOGY METHOD 06/08/2025 5:[facility] Platelets 195 130 - 400 K/mcL LAB HEMETOLOGY METHOD 06/08/2025 5:13 PM [facility] MPV 11.8(H) 7.0 - 11.0 FL LAB HEMETOLOGY METHOD 06/08/2025 5:13 PM [facility] NRBC 0.0 <1.0 % LAB HEMETOLOGY METHOD 06/08/2025 5:13 PM [facility] NRBC Absolute 0.00 <0.10 K/mcL LAB HEMETOLOGY METHOD 06/08/2025 5:13 PM [facility] Neutrophils Relative 54.9 % LAB HEMETOLOGY METHOD 06/08/2025 5:13 PM [facility] Lymphocytes Relative 33.7 % LAB HEMETOLOGY METHOD 06/08/2025 5:13 PM [facility] Monocytes Relative 9.7 % LAB HEMETOLOGY METHOD 06/08/2025 5:13 PM [facility] Eosinophils Relative 1.3 % LAB HEMETOLOGY METHOD 06/08/2025 5:13 PM [facility] Basophils Relative 0.4 % LAB HEMETOLOGY METHOD 06/08/2025 5:13 PM [facility] Immature Granulocytes Relative 0.0 % LAB HEMETOLOGY METHOD 06/08/2025 5:13 PM [facility] Neutrophils Absolute 2.56 1.50 - 7.00 K/mcL LAB HEMETOLOGY METHOD 06/08/2025 5:13 PM [facility] Lymphocytes Absolute 1.57 1.00 - 5.00 K/mcL LAB HEMETOLOGY METHOD 06/08/2025 5:13 PM EDT [facility] Monocytes Absolute 0.45 0.20 - 1.00 K/mcL LAB HEMETOLOGY METHOD 06/08/2025 5:13 PM EDT [facility] Eosinophils Absolute 0.06 0.00 - 0.50 K/[facility] LAB HEMETOLOGY METHOD 06/08/2025 5:13 PM EDT [facility] Basophils Absolute 0.02 0.00 - 0.20 K/mcL LAB HEMETOLOGY METHOD 06/08/2025 5:13 PM EDT [facility] Immature Granulocytes Absolute 0.00 0.00 - 0.03 K/mcL LAB HEMETOLOGY METHOD 06/08/2025 5:13 PM EDT [facility] Blood Venous blood specimen / Unknown Venipuncture / Unknown 06/08/2025 3:04 PM EDT 06/08/2025 3:04 PM EDT us Nelson Sanchez MD LAB BLOOD ORDERABLES Final Resu lt [facility] [address] [place] [address], * Microalbumin creatinine urine ratio (06/08/2025 3:04 PM EDT) Creatinine, Urine 174.0 mg/dL LAB CHEMISTRY METHOD 06/08/2025 5:41 PM EDT [facility] Microalb, Ur 22.4 0.0 - 29.0 mg/L LAB CHEMISTRY METHOD 06/08/2025 5:41 PM EDT [facility] Microalb/Creat Ratio 13 <30 mg/g creat LAB CHEMISTRY METHOD 06/08/2025 5:41 PM EDT [facility] Urine Urine specimen obtained by clean catch procedure / Unknown Non-blood Collection / Unknown 06/08/2025 3:04 PM EDT 06/08/2025 3:04 PM EDT us Nelson Sanchez MD LAB URINE ORDERABLES Final Resu lt Performing Organization Address [facility]/ZIP Co de Phone Number [facility] [address] [place] [address], [place] [phone] * Hemoglobin A1c (06/08/2025 3:04 PM EDT) [facility] Hemoglobin A1C 5.3 <6.5 % LAB CHEMISTRY METHOD 06/08/2025 9:42 PM EDT [facility] Mean Bld Glu Estim. 105 mg/dL LAB CHEMISTRY METHOD 06/08/2025 9:42 PM EDT [facility] Blood Venous blood specimen / Unknown Venipuncture / Unknown 06/08/2025 3:04 PM EDT 06/08/2025 3:04 PM EDT us Nelson Sanchez MD LAB BLOOD ORDERABLES Final Resu lt Performing Organization Address [facility]/ZIP Co de Phone Number [facility] [address] [place] [address], [place] [phone] * Comprehensive metabolic panel (06/08/2025 3:04 PM EDT) [facility] Sodium 140 133 - 145 mmol/L LAB CHEMISTRY METHOD 06/08/2025 7:02 PM EDT [facility] Potassium 4.2 3.5 - 5.5 mmol/L LAB CHEMISTRY METHOD 06/08/2025 7:02 PM EDT [facility] Chloride 105 96 - 110 mmol/L LAB CHEMISTRY METHOD 06/08/2025 7:02 PM EDT [facility] CO2 30 21 - 32 mmol/L LAB CHEMISTRY METHOD 06/08/2025 7:02 PM EDT [facility] Anion Gap 5 3 - 11 LAB CHEMISTRY METHOD 06/08/2025 7:02 PM [facility] Glucose 86 70 - 100 mg/dL LAB CHEMISTRY METHOD 06/08/2025 7:02 PM [facility] BUN 19 5 - 25 mg/dL LAB CHEMISTRY METHOD 06/08/2025 7:02 PM [facility] Creatinine 0.72 0.50 - 1.10 mg/dL LAB CHEMISTRY METHOD 06/08/2025 7:02 PM [facility] eGFR 94 >=60 mL/min/1. 73m2 LAB CHEMISTRY METHOD 06/08/2025 7:02 PM [facility] Comment:Calculation based on the Chronic Kidney Disease Epidemiology Collaboration (CKD-EPI) equation refit without adjustment for race. BUN/Creatinine Ratio 26.4 LAB CHEMISTRY METHOD 06/08/2025 7:02 PM [facility] Calcium 9.2 8.5 - 10.5 mg/dL LAB CHEMISTRY METHOD 06/08/2025 7:02 [facility] AST (SGOT) 16 10 - 42 unit/L LAB CHEMISTRY METHOD 06/08/2025 7:02 [facility] ALT (SGPT) 14 10 - 60 unit/L LAB CHEMISTRY METHOD 06/08/2025 7:02 PM [facility] Alkaline Phosphatase 84 42 - 121 unit/L LAB CHEMISTRY METHOD 06/08/2025 7:02 PM [facility] Total Protein 7.2 6.0 - 8.0 g/dL LAB CHEMISTRY METHOD 06/08/2025 7:02 PM [facility] Albumin 4.0 3.2 - 5.0 g/dL LAB CHEMISTRY METHOD 06/08/2025 7:02 PM [facility] Total Bilirubin 0.4 0.0 - 1.4 mg/dL LAB CHEMISTRY METHOD 06/08/2025 7:02 PM EDT [facility] Blood Venous blood specimen / Unknown Venipuncture / Unknown 06/08/2025 3:04 PM EDT 06/08/2025 3:04 PM EDT us Nelson Sanchez MD LAB BLOOD ORDERABLES Final Resu lt [facility] [address] [place] [address], * XR Lumbar Spine 4+ Views (06/08/2025 2:58 PM EDT) Anatomical Region Laterality Modality Spine, L-spine Radiographic Saranya ging 06/08/2025 5:48 PM EDT Impressions 06/08/2025 5:51 PM EDT Moderate to severe degenerative changes of the lumbar spine. -------- FINAL REPORT -------- Dictated By: Kyle Mancilla Dictated Date: 06/08/2025 17:48 ET Assigned Physician: Kyle Mancilla Reviewed and Electronically Signed By: Kyle Mancilla Signed Date: 06/08/2025 17:51 ET Workstation ID: [id number] Transcribed By: Self Edit Transcribed Date: 06/08/2025 17:48 ET Narrative 06/08/2025 5:51 PM EDT HISTORY: lumbago TECHNIQUE: 5 views of the lumbar spine COMPARISON: Lumbar spine radiograph from 08/31/2015 FINDINGS: Vertebral body height is maintained. Decreased disc height at multiple levels with endplate sclerosis. There is grade 1 retrolisthesis of L1 on L2. Small anterior osteophytes present at multiple levels. Moderate facet arthropathy of the lower lumbar spine. There is moderate to severe neuroforaminal stenosis at multiple levels. Large amount stool throughout the colon. The sacroiliac joints are patent. Procedure Note Kyle Mancilla MD - 06/08/2025 HISTORY: lumbago TECHNIQUE: 5 views of the lumbar spine COMPARISON: Lumbar spine radiograph from 08/31/2015 FINDINGS: Vertebral body height is maintained. Decreased disc height at multiplelevels with endplate sclerosis. There is grade 1 retrolisthesis of L1 onL2. Small anterior osteophytes present at multiple levels. Moderate facetarthropathy of the lower lumbar spine. There is moderate to severeneuroforaminal stenosis at multiple levels. Large amount stool throughoutthe colon. The sacroiliac joints are patent. IMPRESSION: Moderate to severe degenerative changes of the lumbar spine. -------- FINAL REPORT -------- Dictated By: Kyle Mancilla Dictated Date: 06/08/2025 17:48 ET Assigned Physician: Kyle Mancilla Reviewed and Electronically Signed By: Kyle Mancilla Signed Date: 06/08/2025 17:51 ET Workstation ID: [id number] Transcribed By: Self Edit Transcribed Date: 06/08/2025 17:48 ET us Nelson Sanchez MD IMG XR PROCEDURES Final Result * [facility] Mammo Digital Diagnostic w Alfonzo [...] is recommended in 1 year. MAMMO LOCATION: [facility], [address] [place] [address], [id number], . -------- FINAL REPORT -------- Dictated By: Jaky Flowers Dictated Date: 11/28/2024 13:31 ET Assigned Physician: Jaky Flowers Reviewed and Electronically Signed By: Jaky Flowers Signed Date: 11/28/2024 13:35 ET Workstation ID: [id number] Transcribed By: Self Edit Transcribed Date: 11/28/2024 [...] MD IMG BI PROCEDURES Final Result * Diabetes Eye Exam (11/23/2023) [facility] Diabetes: Annual Retina Eye Exam ABSTRACTED Result [facility] Don [employer]TENA[employer]CE Final Result * Depression Screening (11/05/2023) [facility] Depression Screening ABSTRACTED Result [facility] Don [employer]TE[employer] Final Result * Cervical Cancer Screening: HPV (02/19/2023) [facility] Cervical Cancer Screening: HPV negative,a bstracted Result [facility] Don [employer]INTE[employer]CE Final Result * Colonoscopy (03/14/2021) [facility] Colonoscopy no interpretation , abstracted Anatomical Region Laterality Modality Other Result [facility] Don [employer]TE[employer] Final Result * Hepatitis C Screening (02/08/2013) [facility] Hepatitis C Screening ABSTRACTED Result [facility] [employer] Final Result from Last 3 Months or Most Recently Relevant to Health Maintenance Insurance [employer] MEDICARE Member Subscriber Plan / Payer (Ef fective 2022-Present) Name:SIL HERBERT Relation to Subscriber:Self Name:Sil Herbert Payer ID:[id number] Group ID:[id number] Type:Not on file Address: [place] [address] [address] [id number] Advance Directives Documents on File Type Date Recorded Patient Shipping Checker Expl anation Health Care Decision (hx) 06/09/2022 [...] (hx) 06/08/2022 AD BLOOM DIRECTIVE Care Teams Printing Estimator Relationship Specialty Start Date End Date Nelson Sanchez MD [address] [place] [phone] PCP - General Internal Medicine 07/18/24
--- OUTSIDE RECORDS SUMMARY | 2025-07-04 14:42 | XMS_ITS | Encounter Summary ---
Author Organization [facility] Address [address] [place] [address] Care Team Providers Care Home Care Assistant Name Role Phone Nelson Sanchez MD Primary Care Provider [phone] Encounter Details Date Type Department Care Team (Late st Contact Info) Description 2025 Results Follow-Up Adult Medicine [address] [phone] Nelson Sanchez MD [address] [place] [address] Social History Tobacco Use Types Packs/Day Years Used Date Smoking Tobacco: Never Smokeless Tobacco: Never Alcohol Use Standard Drinks/Week Comments No 0 [...] for your loved ones. For example, child welfare assistant or elderly care for an older adult? [...] not to disclose 2023 9:17 AM EST documented as of this encounter Plan of Treatment Upcoming Encounters Date Type Department Care Team (Late st Contact Info) Description 07/10/2025 1:00 PM EST Office Visit Vascular Surgery - [place] [address] [place] [phone] Yue Singletary PA [address] [facility] [address] [place] [address] 07/26/2025 1:15 PM EST Office Visit Endocrinology - [address] [phone] Angelica Braden PA [address] [place] [address] 10/12/2025 11:15 AM EST Office Visit Bariatric Surgery - [place] [address] [place] [phone] Tiki Potter MD [address] [place] [phone] 12/04/2025 1:00 PM EDT Appointment Radiology Department - [address] [phone] 12/15/2025 2:30 PM EDT Office Visit Adult Medicine [facility] - [address] [phone] Nelson Sanchez MD [address] [place] [address] Scheduled Procedures Name Priority Associated Diagnoses Date/Ti me PANNICULECTOMY Abdominal pannus documented as of this encounter Visit Diagnoses Not on filedocumented in this encounter Additional Health Concerns Assessment Noted Time PHQ-9 Depression Total Score: 8 11/16/19 25 7:18 AM EDT documented as of this encounter Care Teams Home Care Assistant Relationship Specialty Start Date End Date Nelson Sanchez MD [address] [place] [address] PCP - General Internal Medicine 07/18/24 documented as of this encounter
--- OUTSIDE RECORDS SUMMARY | 2025-07-04 14:42 | XMS_ITS | Encounter Summary ---
Author Organization [facility] Address [address] [place] [address] Care Team Providers Care Stopping Builder Name Role Phone Nelson Sanchez MD Primary Care Provider [phone] Encounter Details Date Type Department Care Team (Late st Contact Info) Description 2025 Results Follow-Up Adult Medicine [address] [phone] Nelson Sanchez MD [address] [place] [address] Social History Tobacco Use Types Packs/Day Years [...] care for your loved ones. For example, special needs child caregiver or elderly care for an older adult? [...] PM EST Office Visit Vascular Surgery - [place] [address] [place] [phone] Yue Singletary PA [address] [facility] [address] [place] [address] 07/26/2025 1:15 PM EST Office Visit Endocrinology - [address] [phone] Angelica Braden PA [address] [place] [address] 10/12/2025 11:15 AM EST Office Visit Bariatric Surgery - [place] [address] [place] [phone] Tiki Potter MD [address] [place] [address] 12/04/2025 1:00 PM EDT Appointment Radiology Department - [address] [phone] 12/15/2025 2:30 PM EDT Office Visit Adult Medicine [facility] - [address] [phone] Nelson Sanchez MD [address] [place] [address] Scheduled Procedures Name Priority Associated Diagnoses Date/Ti me PANNICULECTOMY Abdominal pannus documented as of this encounter Visit Diagnoses Not on filedocumented in this encounter Additional Health Concerns Assessment Noted Time PHQ-9 Depression Total Score: 8 11/16/19 25 7:18 AM EDT documented as of this encounter Care Teams Stopping Builder Relationship Specialty Start Date End Date Nelson Sanchez MD [address] [place] [address] PCP - General Internal Medicine 07/18/24 documented as of this encounter
== END 2025-07-04 13:21 | disposition home or self-care (01) ==
LOC: HO.HOS 12:59
PROVIDERS: Visit Provider Orthopaedic Surgery
DX: M25.561 Pain in right knee (principal); M25.562 Pain in left knee
CPT/HCPCS: 99213; G2211

== ENCOUNTER → 2025-07-04 12:58 | Outpatient (BNVA) | payer OTHER, SELFPAY | PROVIDERS: Visit Provider Orthopaedic Surgery | DX: M25.562 Pain in left knee (principal); M25.561 Pain in right knee | CPT/HCPCS: 99212 ==